=== PATIENT | female | born 2005 | race Caucasian/White ===

== ENCOUNTER 2023-04-06 19:05 | Emergency (ER) | payer MEDICAID, SELFPAY ==
[2023-04-06 19:08] VITALS: BP 108/74; PULSE 84; RESP 14; TEMP 36.9; O2SAT 99; BMI 22.9
--- NOTE | 2023-04-06 19:24 | ED.NAVMDI1 ---
HPI - Nausea/Vomiting/Diarrhea General Chief complaint: Nausea/Vomiting/Diarrhea Stated complaint: VOMITING Time Seen by Provider: 04/06/23 19:11 Source: patient Mode of arrival: walk-in History of Present Illness HPI Narrative: 18-year-old female to the emergency department with chief complaint of vomiting. Patient reports that this happens to her intermittently. She was seen at [facility] for the same thing today and was told to slow down on the marijuana. Patient reports that they usually give her a shot however they did not have the shot today and she does not feel better putting her Emergency Department visit. Patient reports that she does smoke marijuana every day. She denies any other drug use. She denies any alcohol use. Related Data Home Medications Medication Instructions Recorded Confirmed ibuprofen 800 mg tablet 800 mg PO TID PRN fever or pain 04/06/23 04/06/23 ondansetron 4 mg disintegrating 4 mg PO Q6H PRN nausea and vomiting 04/06/23 04/06/23 tablet Previous Rx's Medication Instructions Recorded promethazine 25 mg rectal 25 mg RI Q6H PRN nausea and 04/06/23 suppository vomiting #12 ea promethazine 25 mg tablet 25 mg PO Q6H PRN nausea and 04/06/23 vomiting #14 tabs Allergies Allergy/AdvReac Type Severity Reaction Status Date / Time No Known Drug Allergies Allergy Verified 04/06/23 19:12 Review of Systems ROS Status of ROS 10 or more systems reviewed and unremarkable except as noted in history and below Exam Narrative Exam Narrative: VITALS: I have reviewed the triage vital signs. GENERAL: Well developed, well appearing adult in no acute distress. NEURO: Alert and oriented. Moves all extremities. Face is symmetric and expressive. EYES: PERRL. No scleral icterus or conjunctival injection. No discharge. HENT: Normocephalic, atraumatic. Hearing is grossly intact. Nares grossly patent and without discharge. Mucous membranes moist. NECK: No JVD. Patient moves neck without restriction. CARDIO: Rhythm regular. Normal rate. No murmur, rub, or gallop. Pulses equal bilaterally in the upper and lower extremity. No lower extremity edema. PULM: Lungs clear to auscultation in all torres. No wheezes, rales, or rhonchi. No conversational dyspnea. No splinting, stridor, or accessory muscle use. GI/: Abdomen is soft and non-tender. Normoactive bowel sounds. EXTREMITIES: Symmetric muscle bulk. No joint swelling. No clubbing, cyanosis, or deformity. SKIN: Warm and dry. Normal turgor. No rash or lesions appreciated. PSYCH: Mood, affect, and interaction is appropriate to the setting. Constitutional Vital Signs, click to edit/add: Last Vital Signs Temp 98.5 F 04/06/23 19:08 Pulse 84 04/06/23 19:08 Resp 14 04/06/23 19:08 BP 108/74 04/06/23 19:08 Pulse Ox 99 04/06/23 19:08 O2 Del Method Room Air 04/06/23 19:08 Course Vital Signs Vital signs: Vital Signs Temperature 98.5 F 04/06/23 19:08 Pulse Rate 84 04/06/23 19:08 Respiratory Rate 14 04/06/23 19:08 Blood Pressure 108/74 04/06/23 19:08 Pulse Oximetry 99 04/06/23 19:08 Oxygen Delivery Method Room Air 04/06/23 19:08 Temperature 98.5 F 04/06/23 19:08 Pulse Rate 84 04/06/23 19:08 Respiratory Rate 14 04/06/23 19:08 Blood Pressure 108/74 04/06/23 19:08 Pulse Oximetry 99 04/06/23 19:08 Oxygen Delivery Method Room Air 04/06/23 19:08 MDM - Nausea/Vomiting/Diarrhea MDM Narrative Medical decision making narrative: 18-year-old female to the emergency department with chief complaint of recurrent vomiting in setting of marijuana use. The patient is afebrile. Examination is benign. He is seen previously for this today however she reports no workup including labs were done. We'll proceed with some screening labs at this time. Fluids, Phenergan ordered. Patient agrees with this plan. Laboratory reviewed. No major abnormalities. She does have small white count which is likely secondary to stress reaction. Patient reexamined.Abdomen remains benign. Her vitals remained stable. She is no longer vomiting after medications. She is able to tolerate oral intake. I recommended cessation of marijuana use for six months as diagnostic step to see if this resolves her episodic vomiting. She'll follow-up with her PCP. She is given Phenergan as this seems to work better for her. If she cannot take the oral tablet she is instructed to use a Phenergan suppository. Return precautions were discussed. All questions were answered. The patient was discharged home. Lab Data Labs: Lab Results 04/06/23 Range/Units 19:34 WBC 17.8 H (4.0-11.0) 10^3/uL RBC 5.42 H (4.20-5.40) 10^6/uL Hgb 14.2 (12.0-16.0) g/dL Hct 42.9 (36.0-48.0) % MCV 79.2 L (81.0-99.0) fL MCH 26.2 L (26.7-34.0) pg MCHC 33.1 (29.9-35.2) g/dL RDW 12.6 (11.0-15.0) % Plt Count 259 (150-450) 10^3/uL MPV 11.5 (9.5-13.5) fL Neut % (Auto) 89.9 H (43.0-75.0) % Lymph % (Auto) 6.0 L (20.5-60.0) % [place] % (Auto) 3.5 (1.7-12.0) % Eos % (Auto) 0.0 L (0.9-7.0) % Baso % (Auto) 0.2 (0.2-2.0) % Neut # (Auto) 16.0 H (1.4-6.5) 10^3/uL Lymph # (Auto) 1.1 L (1.2-3.8) 10^3/uL [place] # (Auto) 0.6 (0.3-0.8) 10^3/uL Eos # (Auto) 0.0 (0.0-0.7) 10^3/uL Baso # (Auto) 0.0 (0.0-0.1) 10^3/uL Abs Immat Gran (auto) 0.07 H (0.00-0.03) 10^3/uL Imm/Tot Granulo (auto) 0.4 (0.0-0.5) % Sodium 142 (136-145) mmol/L Potassium 3.5 (3.5-5.1) mmol/L Chloride 108 H (98-107) mmol/L Carbon Dioxide 22.6 (21.0-32.0) mmol/L Anion Gap 14.9 BUN 14.0 (7.0-18.0) mg/dL Creatinine 1.05 H (0.55-1.02) mg/dL Est GFR ( Amer) >60 (>=60) Est GFR (Non-Af Amer) >60 (>=60) BUN/Creatinine Ratio 13.3 Glucose 125 H (74-106) mg/dL Calcium 9.6 (8.5-10.1) mg/dL Total Bilirubin 0.4 (0.2-1.0) mg/dL AST 21 (15-37) U/L ALT 26 (14-59) U/L Alkaline Phosphatase 83 (46-116) U/L Total Protein 8.2 (6.4-8.2) g/dL Albumin 4.3 (3.4-5.0) g/dL Globulin 3.9 g/dL Albumin/Globulin Ratio 1.1 Lipase <10.0 L (16.0-77.0) U/L Discharge Plan Discharge Chief Complaint: Nausea/Vomiting/Diarrhea Clinical Impression: Vomiting Patient Disposition: Home, Self-Care Time of Disposition Decision: 21:06 Condition: Good Mode of Transportation: Private Vehicle Prescriptions / Home Meds: New promethazine 25 mg tablet 25 mg PO Q6H PRN (Reason: nausea and vomiting) Qty: 14 0RF promethazine 25 mg suppository 25 mg RI Q6H PRN (Reason: nausea and vomiting) Qty: 12 0RF No Action ibuprofen 800 mg tablet 800 mg PO TID PRN (Reason: fever or pain) ondansetron 4 mg tablet,disintegrating 4 mg PO Q6H PRN (Reason: nausea and vomiting) Print Language: Pakistani Instructions: Acute Nausea and Vomiting (ED) Additional Instructions: Follow up with her primary care doctor. Discontinue marijuana use for the next six months to see if this resolves her episodic vomiting. Stand Alone Forms: Portal Instructions Referrals: Physician,Non-Staff, MD [Primary Care Provider] - 1 week
[2023-04-06 19:41] LABS: Basophils Percent Auto 0.2 % (0.2-2.0); Hematocrit 42.9 % (36.0-48.0); Hemoglobin 14.2 g/dL (12.0-16.0); Immature Granulocytes Abs Auto 0.07 10^3/uL (0.00-0.03); Immature Granulocytes Pct Auto 0.4 % (0.0-0.5); Lymphocytes Absolute Auto 1.1 10^3/uL (1.2-3.8); Mean Corpuscular HGB Conc 33.1 g/dL (29.9-35.2); Mean Corpuscular Hemoglobin 26.2 pg (26.7-34.0); Mean Corpuscular Volume 79.2 fL (81.0-99.0); Mean Platelet Volume 11.5 fL (9.5-13.5); Monocytes Absolute Auto 0.6 10^3/uL (0.3-0.8); Monocytes Percent Auto 3.5 % (1.7-12.0); Neutrophils Percent Auto 89.9 % (43.0-75.0); Platelet Count 259 10^3/uL (150-450); Red Blood Count 5.42 10^6/uL (4.20-5.40); Red Cell Distribution Width 12.6 % (11.0-15.0); White Blood Count 17.8 10^3/uL (4.0-11.0)
[2023-04-06] MEDS: 0.9 % SODIUM CHLORIDE 1,000 ML 999 ML IV (19:44)
[2023-04-06] MEDS: PROMETHAZINE HCL 25 MG/ML VIAL IV (19:44)
[2023-04-06 19:59] LABS: Alanine Aminotransferase 26 U/L (14-59); Albumin Globulin Ratio 1.1; Albumin Level 4.3 g/dL (3.4-5.0); Alkaline Phosphatase 83 U/L (46-116); Anion Gap 14.9; Aspartate Amino Transferase 21 U/L (15-37); BUN Creatinine Ratio 13.3; Bilirubin Total 0.4 mg/dL (0.2-1.0); Calcium 9.6 mg/dL (8.5-10.1); Carbon Dioxide 22.6 mmol/L (21.0-32.0); Chloride 108 mmol/L (98-107); Estimated GFR (African America >60 (>=60); Estimated GFR (Non-African Ame >60 (>=60); Globulin 3.9 g/dL; Glucose 125 mg/dL (74-106); Lipase <10.0 U/L (16.0-77.0); Potassium 3.5 mmol/L (3.5-5.1); Sodium 142 mmol/L (136-145); Total Protein 8.2 g/dL (6.4-8.2)
== END 2023-04-06 21:22 | disposition home or self-care (01) ==
PROVIDERS: Emergency Provider Student in an Organized Health Care Education/Training Program
DX: R11.10 Vomiting, unspecified (principal); F12.90 Cannabis use, unspecified, uncomplicated
CPT/HCPCS: 36415; 80053; 83690; 85025; 96374; 99284; J2250

== ENCOUNTER 2023-09-11 19:39 | Emergency (ER) | payer OTHER, SELFPAY ==
[2023-09-11 19:50] VITALS: BP 117/76; PULSE 75; TEMP 36.7; O2SAT 100; BMI 21.7
--- NOTE | 2023-09-11 19:59 | CT_ITS ---
The [address] [address] Patient Name: FRANCISCO MADRID MRN: [id number] date: 2005 Sex: F Assigned Patient Location: Current Patient Location: Accession/Order Number: [id number] Exam Date: 09/11/2023 22:37 Report Date: 09/12/2023 01:10 At the request of: CHRISTIAN ALEXANDER Procedure: CT abdomen pelvis w con EXAM: CT abdomen pelvis w con HISTORY: Pelvic pain COMPARISON: None. TECHNIQUE: Axial CT images through the abdomen and pelvis were obtained after the intravenous administration of contrast with coronal and sagittal reformats. Dose reduction techniques were achieved by using automated exposure control and/or adjustment of mA and/or kV according to patient size and/or use of iterative reconstruction technique. FINDINGS: The visualized portions of the lung bases are clear. Abdomen: The liver and spleen enhance homogeneously without focal lesion. There is no intra or extrahepatic biliary duct dilatation. The gallbladder is unremarkable. The pancreas, adrenal glands, kidneys, and bowel loops are unremarkable. There is no mesenteric or retroperitoneal lymphadenopathy. The appendix is dilated measuring up to 0.8 cm without surrounding inflammatory changes. Pelvis: Liquid stool is seen within the rectum. The bladder is unremarkable. There is no iliac or inguinal lymphadenopathy. The uterus is present. The right ovary appears within normal limits by CT. There is a left ovarian hemorrhagic cyst measuring up to 1.3 x 1.1 cm (series 3, image 99). There is a small amount of free fluid in the pelvis. Bone windows show no aggressive osseous lesions. CT/CT abdomen pelvis w con IMPRESSION: 1. Left ovarian hemorrhagic cyst with a small amount of free fluid in the pelvis. 2. Liquid stool in the rectum, in keeping with diarrhea. 3. The appendix is prominent measuring up to 0.8 cm; however, no surrounding inflammatory changes are seen. Acute appendicitis is felt unlikely. Electronically authenticated by: Radha BRAY Date: 09/12/2023 01:10
--- OUTSIDE RECORDS SUMMARY | 2023-09-11 20:00 | XMS_ITS | CCD ---
Author Organization [facility] Care Team Providers Care Dental Technician Apprentice Name Role Phone MARKER, DR ALEGRIA Attending Unavailable MARKER, DR ALEGRIA Admitting Unavailable HO ALEXANDER Consulting Unavailable [facility] [place] Primary Care Unavailable NO FAMILY, PHYSICIAN Primary Care Provider Unava ilable JOHANNA Cobian Emergency Provider Fredy Cobian Attending Unavailable Fredy Cobian Admitting Unavailable NO FAMILY, PHYSICIAN Primary Care Unavailable LUCA ODOM Attending Unavailab whitney No Pcp, No Pcp Primary Care Provider Unavailmiguel e NO PCP, NO PCP Primary Care Unavailable JOSSY ESTEVEZ Attending Unavailable NO PCP, NO PCP Primary Care Unavailable DACIA ROSE Attending Unavailable NO PCP, NO PCP Primary Care Unavailable Medications Current Medications Medication Drug Class(es) Dates Sig (Normalized) Sig (Original) acetaminophen 325 mg / oxyCODONE hydrochloride 5 mg oral tablet (1 source) Opioid Agonist Start: 04-11-2023 End: 04-13-2023 oxyCODONE-acetamin ophen (PERCOCET) 5-325 mg per tablet Indications: Postoperative abscess Take 1 tablet by mouth every 8 (eight) hours as needed for pain for up to 2 days. Max Daily Amount: 3 tablets 6 tablet 0 04/11/2023 04/13/2023 Active benzocaine 200 mg/ml / menthol 5 mg/ml topical spray (3 sources) Standardized Chemical Allergen Start: 04-11-2023 benzocaine-menthoL (DERMOPLAST) 20-0.5 % aerosol Apply 1 Application topically 4 (four) times a day as needed for pain. 56 g 0 04/11/2023 Active cephalexin 500 mg oral capsule (3 sources) Cephalosporin Antibacterial Start: 04-11-2023 End: 04-18-2023 take 1 capsule by mouth three times daily CEPHalexin (KEFLEX) 500 mg capsule Take 1 capsule (500 mg total) by mouth 3 (three) times a day for 7 days. 21 capsule 0 04/11/2023 04/18/2023 Active doxycycline hyclate 100 mg oral tablet (1 source) Tetracycline-class Drug Start: 04-11-2023 End: 04-18-2023 take 1 tablet by mouth in the morning, then take 1 tablet by mouth at bedtime doxycycline (VIBRA-TABS) 100 mg tablet Take 1 tablet (100 mg total) by mouth in the morning and 1 tablet (100 mg total) before bedtime. 0 04/11/2023 04/18/2023 Active ibuprofen 800 mg oral tablet (3 sources) Nonsteroidal Anti-inflammatory Drug Start: 04-06-2023 take 1 tablet by mouth three times daily ibuprofen (MOTRIN) 800 mg tablet Take 1 tablet (800 mg total) by mouth 3 (three) times a day. 21 tablet 0 04/06/2023 Active ondansetron 4 mg disintegrating oral tablet (1 source) Serotonin-3 Receptor Antagonist Start: 08-10-2022 take 4 mg by mouth every eight hours Ondansetron Active 4 MG PO Q8H 7 August 10, 2022 11:58am Problems Active Problems Problem Classification Problem Date Documented Da te Episodic/Chronic Complications of surgical procedures or medical care (1 source) Infection following a procedure, other surgical site, initial encounter; Translations: [Infection following a procedure, other surgical site, initial encounter] Onset: 04-11-2023 Episodic Inflammatory diseases of female pelvic organs (3 sources) Abscess of vulva; Translations: [Abscess of labia] Onset: 04-11-2023 04-17-2023 Episodic Nausea and vomiting (3 sources) Vomiting, unspecified; Translations: [Vomiting] Onset: 04-06-2023 Episodic Other gastrointestinal disorders (1 source) Diarrhea Onset: 04-06-2023 Episodic Other skin disorders (3 sources) Localized swelling, mass and lump, trunk; Translations: [LOCALIZD SWELLING MASS AND LUMP TRUNK] Onset: 07-29-2020 Episodic Other skin disorders (1 source) Follicular disorder, unspecified; Translations: [FOLLICULAR DISORDER UNSPECIFIED] Onset: 07-31-2020 Episodic Other upper respiratory infections (1 source) Viral upper respiratory tract infection; Translations: [Acute upper respiratory infection, unspecified] 08-10-2022 Episodic Skin and subcutaneous tissue infections (2 sources) Cellulitis of groin; Translations: [Abscess] Onset: 07-31-2020 Episodic Unclassified (1 source) Cyclical vomiting syndrome unrelated to migraine; Translations: [Cyclical vomiting syndrome unrelated to migraine] Onset: 04-06-2023 Past or Other Problems Problem Classification Problem Date Documented Da te Episodic/Chronic Viral infection (1 source) Viral infection, unspecified; Translations: [Viral infection, unspecified] Onset: 08-10-2022 Episodic Results Test Name Value Interpretation Reference Range Facil ity BASIC METABOLIC PANLon 04-11 Anion gap [Moles/Vol] 6 mmol/L Normal 5-15 [facility] Comment on above: Performed By: #### B KATELYN CBCA #### [facility] ([id number]) [address] [place] [address] 79874 Calcium [Mass/Vol] 8.6 mg/dL Normal 8.5-10.5 [facility] Comment on above: Performed By: #### B KATELYN CBCA #### [facility] ([id number]) [address] [place] [address] 67602 Chloride [Moles/Vol] 109 mmol/L Normal 98-109 [facility] Comment on above: Performed By: #### Edwige ZEPEDA CBCA #### [facility] ([id number]) [address] [place] [address] 21555 CO2 [Moles/Vol] 24 mmol/L Normal 22-32 [facility] Comment on above: Performed By: #### Edwige ZEPEDA CBCA #### [facility] ([id number]) [address] [place] [address] 63172 Creatinine [Mass/Vol] 0.72 mg/dL Normal 0.40-1.00 [facility] Comment on above: Result Comment: METH OD TRACEABLE TO IDMS STANDARD Performed By: #### B KATELYN CBCA #### [facility] ([id number]) [address] [place] [address] 52064 eGFR (CKD-EPI) NON-RACE DEPENDENT >90 Normal >59 [facility] Comment on above: Result Comment: Reported eGFR is based on the CKD-EPI 2020 equation that does not use a race coefficient. Performed By: #### B KATELYN CBCA #### [facility] ([id number]) [address] [place] [address] 73532 Glucose [Mass/Vol] 97 mg/dL Normal 65-99 [facility] Comment on above: Performed By: #### B KATELYN CBCA #### [facility] ([id number]) [address] [place] [address] 03812 Potassium [Moles/Vol] 3.2 mmol/L Low 3.5-5.0 [facility] Comment on above: Performed By: #### B KATELYN CBCA #### [facility] ([id number]) [address] [place] [address] 49090 Sodium [Moles/Vol] 139 mmol/L Normal 134-146 [facility] Comment on above: Performed By: #### B KATELYN CBCA #### [facility] ([id number]) [address] [place] [address] 68599 Urea nitrogen [Mass/Vol] 6 mg/dL Normal 5-23 [facility] Comment on above: Performed By: #### B KATELYN CBCA #### [facility] ([id number]) [address] [place] [address] 88090 CBC AND AUTO DIFFon -30-20 24 ABSOLUTE BASOPHIL 0.1 X10E9/L Normal 0.0-0.2 [facility] Comment on above: Performed By: #### B KATELYN, CBCA #### [facility] ([id number]) [address] [place] [address] 60501 ABSOLUTE NEUTROPHIL 10.3 X10E9/L High 1.5-6.6 [facility] Comment on above: Performed By: #### B MP, CBCA #### [facility] ([id number]) [address] [place] [address] 34718 Basophils/100 WBC (Bld) 0.6 % Normal [facility] Comment on above: Performed By: #### B MP, CBCA #### [facility] ([id number]) [address] [place] [address] 05837 Eosinophils (Bld) [#/Vol] 0.2 10*3/uL Normal 0.0-0.4 [facility] Comment on above: Performed By: #### B MP, CBCA #### [facility] ([id number]) [address] [place] [address] 47021 Eosinophils/100 WBC (Bld) 1.2 % Normal [facility] Comment on above: Performed By: #### B MP, CBCA #### [facility] ([id number]) [address] [place] [address] 92595 Erythrocyte distribution width (RBC) [Ratio] 13.1 % Normal 11.5-15.0 [facility] Comment on above: Performed By: #### B MP, CBCA #### [facility] ([id number]) [address] [place] [address] 96742 Hematocrit (Bld) [Volume fraction] 38.7 % Normal 35-47 [facility] Comment on above: Performed By: #### B MP, CBCA #### [facility] ([id number]) [address] [place] [address] 45880 Hemoglobin (Bld) [Mass/Vol] 12.7 g/dL Normal 11.7-15.5 [facility] Comment on above: Performed By: #### B MP, CBCA #### [facility] ([id number]) [address] [place] [address] 79165 Lymphocytes (Bld) [#/Vol] 3.0 10*3/uL Normal 1.0-3.5 [facility] Comment on above: Performed By: #### B KATELYN, CBCA #### [facility] ([id number]) [address] [place] [address] 61250 Lymphocytes/100 WBC (Bld) 20.4 % Normal [facility] Comment on above: Performed By: #### B KATELYN, CBCA #### [facility] ([id number]) [address] [place] [address] 51314 MCH (RBC) [Entitic mass] 26.1 pg Low 27-34 [facility] Comment on above: Performed By: #### B KATELYN, CBCA #### [facility] ([id number]) [address] [place] [address] 99885 MCHC (RBC) [Mass/Vol] 32.9 g/dL Normal 32-36 [facility] Comment on above: Performed By: #### B KATELYN, CBCA #### [facility] ([id number]) [address] [place] [address] 35579 MCV (RBC) [Entitic vol] 79 fL Low 80-100 [facility] Comment on above: Performed By: #### B KATELYN, CBCA #### [facility] ([id number]) [address] [place] [address] 71155 Monocytes (Bld) [#/Vol] 1.1 10*3/uL High 0-0.9 [facility] Comment on above: Performed By: #### B KATELYN, CBCA #### [facility] ([id number]) [address] [place] [address] 80673 Monocytes/100 WBC (Bld) 7.4 % Normal [facility] Comment on above: Performed By: #### B KATELYN, CBCA #### [facility] ([id number]) [address] [place] [address] 30525 Neutrophils/100 WBC (Bld) 70.4 % Normal [facility] Comment on above: Performed By: #### B MP, CBCA #### [facility] ([id number]) [address] [place] [address] 06829 Platelet mean volume (Bld) [Entitic vol] 10.0 fL Normal 7-12 [facility] Comment on above: Performed By: #### B MP, CBCA #### [facility] ([id number]) [address] [place] [address] 73747 Platelets (Bld) [#/Vol] 199 10*3/uL Normal 150-450 [facility] Comment on above: Performed By: #### B MP, CBCA #### [facility] ([id number]) [address] [place] [address] 04711 RBC COUNT 4.88 X10E12/L Normal 3.80-5.20 [facility] Comment on above: Performed By: #### B MP, CBCA #### [facility] ([id number]) [address] [place] [address] 90928 WBC (Bld) [#/Vol] 14.6 10*3/uL High 4.0-11.0 [facility] Comment on above: Performed By: #### B MP, CBCA #### [facility] ([id number]) [address] [place] [address] 63251 HCG ( test) Ql (U)o n 04-11-2023 Beta HCG ( test) Ql (U) Negative Normal NEG [facility] Comment on above: Performed By: #### 2 106-3 #### [facility] ([id number]) [address] [place] [address] 68266 SUPERFICIAL WOUND CULTUREon 04-11-2023 Bacteria identified Aer cx Nom (Wound) GRAM STAIN >25 WHITE BLOOD CELLS/LPF 1 to 9 SQUAMOUS EPITHELIAL CELLS/LPF MANY GRAM POSITIVE COCCI IN CLUSTERS MANY GRAM POSITIVE COCCI IN PAIRS MANY GRAM NEGATIVE COCCOBACILLI SMEAR REVIEWED REPORT UPDATED REVIEWED BY TECH III CULTURE RESULTS RARE NORMAL URO GENITAL KARLA Normal [facility] Comment on above: Performed By: #### 6 32-0 #### [facility] ([id number]) [address] [place] [address], [address] [place] [address] URN MACROSCOPIC NURon 2023 BILIRUBIN DEVORA Negative Normal NEG [facility] Comment on above: Performed By: #### N UM #### [facility] ([id number]) [address] [place] [address] 70300 BLOOD/HGB DEVORA Large Abnormal NEG [facility] Comment on above: Performed By: #### N UM #### [facility] ([id number]) [address] [place] [address] 49786 GLUCOSE DEVORA Negative Normal NEG [facility] Comment on above: Performed By: #### N UM #### [facility] ([id number]) [address] [place] [address] 07970 KETONES DEVORA Negative Normal NEG [facility] Comment on above: Performed By: #### N UM #### [facility] ([id number]) [address] [place] [address] 83291 LEUKOCYTE ESTERASE DEVORA Small Abnormal NEG [facility] Comment on above: Performed By: #### N UM #### [facility] ([id number]) [address] [place] [address] 72699 NITRITE DEVORA Negative Normal [facility] Comment on above: Performed By: #### N UM #### [facility] ([id number]) [address] [place] [address] 84224 PH DEVORA 6.0 Normal 5.0-8.5 [facility] Comment on above: Performed By: #### N UM #### [facility] ([id number]) [address] [place] [address] 79402 PROTEIN DEVORA 30 mg/dL Abnormal NEG [facility] Comment on above: Performed By: #### N UM #### [facility] ([id number]) [address] [place] [address] 91322 SPECIFIC GRAVITY DEVORA >=1.030 Normal 1.003-1.035 [facility] Comment on above: Performed By: #### N UM #### [facility] ([id number]) [address] [place] [address] 48605 UROBILINOGEN DEVORA 0.2 eu/dL Normal <1.1 [facility] Comment on above: Performed By: #### N UM #### [facility] ([id number]) [address] [place] [address] 05494 HCG ( test) Ql (U)o n 04-06-2023 Beta HCG ( test) Ql (U) Negative Normal NEG [facility] Comment on above: Performed By: #### 2 106-3 #### [facility] ([id number]) [address] [place] [address] 71440 URINE CULTUREon 04-06-2023 Bacteria identified Cx Nom (U) CULTURE RESULTS NO GROWTH AT <1000 CFU/mL Normal [facility] Comment on above: Performed By: #### 6 30-4 #### [facility] ([id number]) [address], [address] [place] [address] URN MACROSCOPIC NURon 2023 BILIRUBIN DEVORA Small Abnormal NEG [facility] Comment on above: Performed By: #### N UM #### [facility] ([id number]) [address] [place] [address] 83586 BLOOD/HGB DEVORA Large Abnormal NEG [facility] Comment on above: Performed By: #### N UM #### [facility] ([id number]) [address] [place] [address] 02140 GLUCOSE DEVORA Negative Normal NEG [facility] Comment on above: Performed By: #### N UM #### [facility] ([id number]) [address] [place] [address] [place] [address] KETONES DEVORA >=160 Abnormal NEG [facility] Comment on above: Performed By: #### N UM #### [facility] ([id number]) [address] [place] [address] 03148 LEUKOCYTE ESTERASE DEVORA Trace Abnormal NEG [facility] Comment on above: Performed By: #### N UM #### [facility] ([id number]) [address] [place] [address] 09801 NITRITE DEVORA Negative Normal NEG [facility] Comment on above: Performed By: #### N UM #### [facility] ([id number]) [address] [place] [address] 67672 PH DEVORA 8.5 Normal 5.0-8.5 [facility] Comment on above: Performed By: #### N UM #### [facility] ([id number]) [address] [place] [address] 63460 PROTEIN DEVORA 100 mg/dL Abnormal NEG [facility] Comment on above: Performed By: #### N UM #### [facility] ([id number]) [address] [place] [address] 80517 SPECIFIC GRAVITY DEVORA 1.020 Normal 1.003-1.035 [facility] Comment on above: Performed By: #### N UM #### [facility] ([id number]) [address] [place] [address] [place] [address] UROBILINOGEN DEVORA 0.2 eu/dL Normal <1.1 [facility] Comment on above: Performed By: #### N UM #### [facility] ([id number]) [address] [facility] [facility] [place] [address] COVID-19 Antigenon 3 COVID-19 Antigen Healthcare Worker?: N Reference Range: Negative Negative results, from patients with symptom onset beyond five days, should be treated as presumptive and confirmation with a molecular assay, if necessary, for patient management, may be performed. Negative results do not rule out COVID-19 and should not be used as the sole basis for treatment or patient management decisions, including infection control decisions. Negative results should be considered in the context of a patient's recent exposures, history and the presence of clinical signs and symptoms consistent with COVID-19. The Billy SARS Antigen RODERICK does not differentiate between SARS-CoV and SARS-CoV-2. This test was developed and its performance characteristic determined by [employer] and validated at [facility]. This test has not been FDA cleared or approved. This test has been authorized by FDA under an Emergency Use Authorization (EUA). This test has been validated in accordance with the FDA's Guidance Document (Policy for Diagnostics Testing in Laboratories Certified to Perform High Complexity Testing under CLIA prior to Emergency Use Authorization for Coronavirus Disease-2019 during the Public Health Emergency) issued on June 13, 2019. This test is only authorized for the duration of time the declaration that circumstances exist justifying the authorization of the emergency use of in vitro diagnostic tests for detection of SARS-CoV-2 virus and/or diagnosis of COVID-19 infection under section 564(b)(1) of the Act, 21 U.S.C. 360bbb-3(b)(1), unless the authorization is terminated or revoked sooner. SARS-CoV+SARS-CoV-2 (COVID-19) Ag [Presence] in Respiratory specimen by Rapid immunoassay Negative for SARS Antigen by RODERICK PERFORMED BY: [facility] [address] [place] [address] PATHOLOGIST HELICOPTER PILOT INSTRUCTOR SHAYLA LEAVITT M.D. Normal [facility] Comment on above: Performed By: #### C OVID-19 BILLY, SOFIANEG #### [facility] [address] [place] [address] [facility] Billy Ag Negativeon 08-11-19 Billy Ag Negative Negative Normal Negative [facility] Comment on above: Result Comment: This is a duplicate Billy SARS Antigen (RODERICK) result to be used for statistical tracking purpose only. PERFORMED BY: [facility] [address] [place] [address] PATHOLOGIST HELICOPTER PILOT INSTRUCTOR SHAYLA LEAVITT M.D. Performed By: #### C OVID-19 BILLY, SOFIANEG #### [facility] [address] [place] [id number] [facility] Vital Signs Date Time Vital Sign Value Performing Clinician Faci lity 04-17-2023 15:57-0500 Body mass index (BMI) [Ratio] 23.69 kg/m2 Dacia Rose MD Work Phone: [facility] 04-17-2023 15:57-0500 Body weight 56.88 kg Dacia Rose MD Work Phone: [facility] 04-17-2023 15:57-0500 Diastolic blood pressure 66 mm[Hg] Dacia Rose MD Work Phone: [facility] 04-17-2023 15:57-0500 Systolic blood pressure 104 mm[Hg] Dacia Rose MD Work Phone: [facility] 08-10-2022 11:26-0400 Body height 154.94 cm PHYSICIAN NO [facility] 08-10-2022 11:26-0400 Body temperature 98.6 [degF] PHYSICIAN NO [facility] 08-10-2022 11:26-0400 Body weight 53.35 kg PHYSICIAN NO [facility] 08-10-2022 11:26-0400 Diastolic blood pressure 79 mm[Hg] PHYSICIAN NO [facility] 08-10-2022 11:26-0400 Heart rate 85 /min PHYSICIAN NO [facility] 08-10-2022 11:26-0400 Respiratory rate 16 /min PHYSICIAN NO [facility] 08-10-2022 11:040 SaO2% (BldA) [Mass fraction] 100 % PHYSICIAN NO [facility] 08-10-2022 11:040 Systolic blood pressure 122 mm[Hg] PHYSICIAN NO [facility] Encounters Encounter Date Encounter Type Care Provider Facility Start: 04-17-2023 End: 04-17-2023 ambulatory DACIA ROSE [facility] Start: 04-17-2023 End: 04-17-2023 Office outpatient visit 15 minutes Dacia Rose MD Work Phone: [facility] Comment on above: Labial abscess (Prim malu Dx) Start: 04-14-2023 Telephone encounter Mignon Mar RN [facility] Start: 04-12-2023 Telephone encounter Amy fitzpatrick DO Work Phone: [facility] [place] Start: 04-11-2023 End: 04-11-2023 Emergency department patient visit NO PCP NO PCP [facility] Start: 04-11-2023 End: 04-11-2023 ambulatory LUCA ODOM Not Available Start: 04-06-2023 End: 04-06-2023 Emergency department patient visit NO PCP NO PCP [facility] Start: 08-10-2022 End: 08-10-2022 Emergency department patient visit Fredy Aranza Facility:[facility] Start: 08-10-2022 End: 08-10-2022 Emergency department patient visit PHYSICIAN NO [facility] Work Phone: Start: 07-29-2020 End: 07-29-[address] RAJI MORENO Facility:[facility]1 Procedures Date Procedure Procedure Detail Performing Clinician Start: 04-17-2023 Follow-up visit Follow-up DACIA ROSE Plan of Treatment Date Care Activity Detail Author Start: 12-21-2025 DTaP,Tdap and Td Vaccines (6 - Td or Tdap) DTaP,Tdap and Td Vaccines (6 - Td or Tdap) [facility] Start: 02-05-2025 Adult BMI Screening Adult BMI Screen ing [facility] Start: 04-17-2024 Tobacco Screening Tobacco Screening [facility] Start: 04-11-2024 Tobacco Screening Tobacco Screening [facility] Start: 04-06-2024 Adult BMI Screening Adult BMI Screen ing [facility] Start: 04-18-2023 End: 04-18-2023 Patient encounter procedure 04/18/2023 2:15 PM EST Office Visit [facility] [place] [id number] Dacia Rose MD [facility] [address] [address] [facility] Start: 04-17-2023 End: 04-17-2023 Patient encounter procedure 04/17/2023 3:45 PM EST Office Visit [facility] [place] [phone] Dacia Rose MD [facility] [address] [address] [facility] Start: 11-11-2022 Influenza vaccination Influenza Vacc ine [facility] Start: 08-10-2022 SARS Antigen (LFIA) SARS Antigen (LF IA) [facility] Start: 08-10-2022 [facility] Start: 2015 Depression Screening Depression Scre ening [facility] Start: 2003 Screening for Chlamy chelsie trachomatis Chlamydia Screening [facility] Start: 2003 Tobacco Counseling Tobacco Counselin g [facility] Patient Education Viral Syndrome (DC) [facility] Work Phone: Patient referral [facility] Work Phone: Immunizations Immunization Date Immunization Notes Care Provider Lexi ruiz 07-05-2005 influenza virus vaccine, unspecified formulation Amy Govea DO Work Phone: [facility] Payers Date Payer Category Payer Private Health Insurance [id number] 2023 [place] [id number] 2023-Present [phone] [address] [place] [address] [id number] 2023 Medicaid [id number] 2022 Self-pay 2019 Private Health Insurance [employer]ONCAMELIA [place]-OPEN ACCESS PLUS (OAP,OA PLUS) [id number] 2019-Present [phone] [address] [place] [address] [id number] 2003 Unknown [id number] 2003 Unknown [id number] 2003 Unknown [id number] 2003 Unknown [id number] 1982 Unknown [id number] 93 1959 Private Health Insurance [id number] Unknown [id number] 31 Social History Date Type Detail Facility Start: 08-10-2022 Tobacco smoking stat [facility] Smoker (finding) [facility] Start: 2005 Sex Assigned At Female [facility] Start: 01-01-2023 Tobacco smoking stat [facility] Smokes tobacco daily [facility] History of tobacco use Cigarette Smoker [facility] History of tobacco use Cigar Smoker [facility] Start: 01-01-2023 Tobacco use and exposure Smokeless tobacco non-user [facility] Start: 04-11-2023 End: 04-17-2023 Alcohol intake Ex-drinker (finding) [facility] Start: 04-23-2020 End: 04-11-2023 History of Social function [facility] Start: 04-23-2020 End: 04-11-2023 Tobacco use panel [facility] Childcare Unknown [facility] Start: 2003 Sex Assigned At Not on file P [facility] History of Present illness Narrative 04-17-2023 Dacia Rose MD - 04/17/2023 3:45 PM EST Note Date & Type Note Facility 04-17-2023 History of Presen t illness Narrative Roger Madrid is a 18 y.o.female. Patient's last menstrual period was 04/05/2023 (exact date).. She presents today for follow up from I&D of L labial abscess in ED on 04/11/23 HEALING WELL NO FCNVD WORD CATH FELL OUT ON MONDAY STILL ON ABX Current contraception:no method OB History No obstetric history on file. MEDICAL HX History reviewed. No pertinent past medical history. SURGICAL HX History reviewed. No pertinent surgical history. FAMILY HX History reviewed. No pertinent family history. MEDS Current Outpatient Medications Medication Sig Dispense Refill CEPHalexin (KEFLEX) 500 mg capsule Take 1 capsule (500 mg total) by mouth 3 (three) times a day for 7 days. 21 capsule 0 doxycycline (VIBRA-TABS) 100 mg tablet Take 1 tablet (100 mg total) by mouth in the morning and 1 tablet (100 mg total) before bedtime. ibuprofen (MOTRIN) 800 mg tablet Take 1 tablet (800 mg total) by mouth 3 (three) times a day. 21 tablet 0 benzocaine-menthoL (DERMOPLAST) 20-0.5 % aerosol Apply 1 Application topically 4 (four) times a day as needed for pain. (Patient not taking: Reported on 04/17/2023) 56 g 0 No current facility-administered medications for this visit. ALLERGIES No Known Allergies Review of Systems Review of Systems Objective Wt 56.9 kg (125 lb 6.4 oz) LMP 04/05/2023 (Exact Date) BMI 23.69 kg/m Physical Exam BP 104/66 Wt 56.9 kg (125 lb 6.4 oz) LMP 04/05/2023 (Exact Date) BMI 23.69 kg/m Physical Exam GEN AAOX3, NAD HEENT UNREMARKABLE HEART RRR LUNGS CTAB ABD BENIGN, OBESE, NTND PELVIS: EG APPROP FOR AGE, LEFT LABIAL ABSCESS HEALING, NO ACUTE INFX VAGINA APPROP FOR AGE, NO LESIONS BIMANUAL NO MASSES OR TENDERNESS RECTAL DEFERRED EXTREM NO CCE, NO CALF TENDERNESS Assessment/Plan: LEFT LABIAL ABSCESS SP I&D 1 WEEK AGO CULTURE FINAL ONLY GRAM NEG COOCI --NO OTHER ID? FINISH ABX MD Danya LOREDO RN documented in this encounter [facility] Note 04-14-2023 Telephone Encounter - Mignon Mar RN - 04/14/2023 10:38 AM EST Note Date & Type Note Facility 04-14-2023 Miscellaneous Notes Formattin g of this note might be different from the original. Pt called stating that the phillips catheter fell out. Informed the patient that this is normal. She is to keep the area dry, when showering she can let the water fall but do not purposely scrub the area. She is to go to the ED if she develops a fever of 100.4 F, drainage that has a foul odor, increased pain, etc. She verbalized she understood. I did move up the pts appt for next Monday instead of Monday with Dr. Rose. Informed her of the after hours service, if she has questions over the weekend she can call the office and speak to the correction officer head provider. She verbalized she understood. PETER Azul [facility] Tele[facility] encounter Note 04-14-2023 Telephone Encounter - Mignon Mar RN - 04/14/2023 10:38 AM EST Note Date & Type Note Facility 04-14-2023 Telephone encount er Note Pt called stating that the phillips catheter fell out. Informed the patient that this is normal. She is to keep the area dry, when showering she can let the water fall but do not purposely scrub the area. She is to go to the ED if she develops a fever of 100.4 F, drainage that has a foul odor, increased pain, etc. She verbalized she understood. I did move up the pts appt for next Monday instead of Monday with Dr. Rose. Informed her of the after hours service, if she has questions over the weekend she can call the office and speak to the correction officer head provider. She verbalized she understood. PETER Azul [facility] Note 04-12-2023 Telephone Encounter - Annmarie Tom - 04/12/2023 9:53 AM ESTTelephone Encounter - Annmarie Tom - 04/12/2023 9:53 AM EST Note Date & Type Note Facility 04-12-2023 Miscellaneous Notes Formattin g of this note might be different from the original. Pt had labial abscess lanced in ED by Dr Rose on 04/11/23. Pt was advised she could take warm baths. Pt is inquiring how soon she can take a bath. Pt states wound is open. Please advise. Thank you Advised Pt per Dr Govea: I was not present when this patient was seen her care for. If Dr. Rose told her that she could take will warm baths I would assume she means that she is able to do so now. documented in this encounter [facility] Telephone encounter Note 04-12-2023 Telephone Encounter - Annmarie Tom - 04/12/2023 9:53 AM EST Note Date & Type Note Facility 04-12-2023 Telephone encount er Note Pt had labial abscess lanced in ED by Dr Rose on 04/11/23. Pt was advised she could take warm baths. Pt is inquiring how soon she can take a bath. Pt states wound is open. Please advise. Thank you [facility] Telephone encounter Note 04-12-2023 Telephone Encounter - Annmarie Tom - 04/12/2023 9:53 AM EST Note Date & Type Note Facility 04-12-2023 Telephone encount er Note Advised Pt per Dr Govea: I was not present when this patient was seen her care for. If Dr. Rose told her that she could take will warm baths I would assume she means that she is able to do so now. [facility] Evaluation note Note Date & Type Note Facility Evaluation note No assessment information [facility] Work Phone: Evaluation note Note Date & Type Note Facility Evaluation note Diagnosis Labial abscess- Primary documented in this encounter [facility] Instructions Note Date & Type Note Facility Instructions Not on filedocumented in this en counter [facility] Instructions Note Date & Type Note Facility Instructions Not on filedocumented in this en counter [facility] Summary Purpose Family History No Family History Records FoundNo Family History Records FoundNo Family History Records FoundNo Family History Records FoundNo Family History Records Found Advance Directives No Advanced Directives Records Found Advance Directive Response Recorded Date/ Time Advance Directives No August 10 11:52am Chief Complaint and Reason for Visit Chief Complaint cough Additional Source Comments INFORMATION SOURCE (unrecogn ized section and content) DATE CREATED AUTHOR 08/06/2020 [facility] DATE CREATED AUTHOR AUTHOR'S ORGANIZ ATION 12/13/2022 [facility] DATE CREATED AUTHOR AUTHOR'S ORGANIZ ATION 04/12/2023 [facility] DATE CREATED AUTHOR AUTHOR'S ORGANIZ ATION 04/16/2023 [facility] DATE CREATED AUTHOR AUTHOR'S ORGANIZ ATION 04/22/2023 [facility] Care Teams (unrecognized sec tion and content) Team Status: Active Member Role Status Dates PHYSICIAN NO FAMILY Primary Care Provider Active Team Status: Inactive Member Role Status Dates PHYSICIAN NO FAMILY Primary Care Provider Active Fredy Cobian APRN Emergency Provider Active Dental Technician Apprentice Relationship Specialty Start Date End Date No Pcp, [place] [address] PCP - General Family Medicine 04/06/23 Dental Technician Apprentice Relationship Specialty Start Date End Date No Pcp, [place] [address] PCP - General Family Medicine 04/06/23 Dental Technician Apprentice Relationship Specialty Start Date End Date No Pcp, [place] [address] PCP - General Family Medicine 04/06/23 Goals (unrecognized section and content) Goals may be documented in a n alternate sectionNot on filedocumented as of this encounterNot on filedocumented as of this encounterNot on filedocumented as of this encounter Reason for Visit (unrecogniz ed section and content) Reason Comments Follow-up From 04/11/23 visit, L labial abscess. FOR RECORDS PERTAINING TO PATIENTS WHO ARE OR HAVE BEEN ENROLLED IN A CHEMICAL DEPENDENCY/SUBSTANCEABUSE PROGRAM, SOME INFORMATION MAY BE OMITTED. This clinical summary was aggregated from multiple sources. Caution should be exercised in using it in the provision of clinical care. This summary normalizes information from multiple sources, and as a consequence, information in this document may materially change the coding, format and clinical context of patient data. In addition, data may be omitted in some cases. CLINICAL DECISIONS SHOULD BE BASED ON THE PRIMARY CLINICAL RECORDS. [employer] [facility]. provides no warranty or guarantee of the accuracy or completeness of information in this document.
--- NOTE | 2023-09-11 20:01 | ED.ABDPAIN1 ---
Documented by User: HO Cool 09/11/23 22:17 HPI - Abdominal Pain General Chief Complaint: Abdominal Pain Stated Complaint: vomitting cont Time Seen by Provider: 09/11/23 19:43 Source: patient Mode of arrival: walk-in Limitations: no limitations History of Present Illness HPI narrative: Patient is a 18-year-old female who presents to the emergency department for variety of complaints. She states that every time she is due to have a menstrual period, she has significant pelvic pain and vomiting. This has been ongoing for some time. She has not been seen by a mechanical laboratory technician for the symptoms and she presents to this emergency department tonight for answers. She has had no fevers or upper respiratory symptoms. She states she started her menstrual cycle today. Her family is concerned that she may have an ovarian cyst. She has had no urinary symptoms. She further complains of a boil in the vaginal area, she states she gets frequent boils after shaving in her groin. Her family member at bedside states that the boil is almost gone but the patient thought she should mention it. She states she used to have a mechanical laboratory technician but her insurance changed so she does not have anyone to see. Related Data Home Medications ?Medication ?Instructions ?Recorded ?Confirmed ibuprofen 800 mg tablet 800 mg PO TID PRN fever or pain 04/06/23 04/06/23 ondansetron 4 mg disintegrating 4 mg PO Q6H PRN nausea and vomiting 04/06/23 04/06/23 tablet Previous Rx's ?Medication ?Instructions ?Recorded promethazine 25 mg rectal 25 mg LA Q6H PRN nausea and 04/06/23 suppository vomiting #12 ea promethazine 25 mg tablet 25 mg PO Q6H PRN nausea and 04/06/23 vomiting #14 tabs Allergies Allergy/AdvReac Type Severity Reaction Status Date / Time No Known Drug Allergies Allergy Verified 09/11/23 19:54 Review of Systems ROS Constitutional Denies: fever or chills Ears, nose, mouth, and throat Denies: throat pain or nasal congestion Cardiovascular Denies: chest pain Respiratory Denies: shortness of breath or cough Gastrointestinal Reports: abdominal pain, nausea and vomiting; Denies: diarrhea Genitourinary Reports: pelvic pain; Denies: painful urination Musculoskeletal Denies: back pain Integumentary/Breast Denies: rash Hematologic/Lymphatic Denies: easy bruising or easy bleeding Exam Narrative Exam Narrative: Gen.: Awake, alert, in no distress Head: Normocephalic, atraumatic ENT: Moist mucous membranes Respiratory: No respiratory distress, lungs clear bilaterally Cardio: Regular rate and rhythm Gastrointestinal: Abdomen is soft, nondistended and Diffusely mildly tender in the pelvis, no guarding or rebound. No pain out of proportion on exam Extremities: Moves extremities equally Psych: Normal mood and affect Neuro: No focal neuro deficit Skin: Warm, dry, intact Constitutional Vital Signs, click to edit/add: Last Vital Signs Temp 98.1 F 09/11/23 19:50 Pulse 91 H 09/11/23 22:00 Resp 16 09/11/23 22:00 BP 107/64 09/11/23 22:00 Pulse Ox 100 09/11/23 22:00 O2 Del Method Room Air 09/11/23 22:00 Course Vital Signs Vital signs: Vital Signs Temperature 98.1 F 09/11/23 19:50 Pulse Rate 75 09/11/23 19:50 Respiratory Rate 16 09/11/23 19:50 Blood Pressure 117/76 09/11/23 19:50 Pulse Oximetry 100 09/11/23 19:50 Oxygen Delivery Method Room Air 09/11/23 19:50 Temperature 98.1 F 09/11/23 19:50 Pulse Rate 91 H 09/11/23 22:00 Respiratory Rate 16 09/11/23 22:00 Blood Pressure 107/64 09/11/23 22:00 Pulse Oximetry 100 09/11/23 22:00 Oxygen Delivery Method Room Air 09/11/23 22:00 MDM - Abdominal Pain MDM Narrative Medical decision making narrative: 2211: Patient was treated with IV fluids, Toradol for comfort and Zofran and Pepcid for vomiting. She has been told in the past she has a history of cyclic vomiting. The patient and her family member at bedside are not receptive to this diagnosis.. I evaluated the patient's folliculitis to the left groin. There is a small area of induration consistent with healing folliculitis, no fluctuant abscess or cellulitis. Patient was encouraged to keep warm compresses to this area. Lab studies obtained showing the patient again has leukocytosis, the same as previous visit in March of this year. Her electrolytes are unremarkable and test is negative. She was sent for CT of the abdomen and pelvis. Results are pending at this time. Case is turned over to attending physician at this time for disposition at this time SHARED APC VISIT, PHYSICIAN ATTESTATION: [id number] I performed a substantive part of the MDM during the patient?s E/M visit. I personally evaluated and examined the patient. I personally made or approved the documented management plan and acknowledge its risk of complications. Medical Records Attestation: I reviewed the patient's medical records. Lab Data Attestation: I reviewed the patient's lab results. Labs: Lab Results 09/11/23 09/11/23 Range/Units 20:02 20:06 WBC 17.8 H (4.0-11.0) 10^3/uL RBC 5.67 H (4.20-5.40) 10^6/uL Hgb 14.5 (12.0-16.0) g/dL Hct 45.6 (36.0-48.0) % MCV 80.4 L (81.0-99.0) fL MCH 25.6 L (26.7-34.0) pg MCHC 31.8 (29.9-35.2) g/dL RDW 13.0 (11.0-15.0) % Plt Count 313 (150-450) 10^3/uL MPV 11.7 (9.5-13.5) fL Neut % (Auto) 79.6 H (43.0-75.0) % Lymph % (Auto) 14.3 L (20.5-60.0) % Traverse % (Auto) 5.1 (1.7-12.0) % Eos % (Auto) 0.3 L (0.9-7.0) % Baso % (Auto) 0.5 (0.2-2.0) % Neut # (Auto) 14.2 H (1.4-6.5) 10^3/uL Lymph # (Auto) 2.5 (1.2-3.8) 10^3/uL Traverse # (Auto) 0.9 H (0.3-0.8) 10^3/uL Eos # (Auto) 0.1 (0.0-0.7) 10^3/uL Baso # (Auto) 0.1 (0.0-0.1) 10^3/uL Abs Immat Gran (auto) 0.04 H (0.00-0.03) 10^3/uL Imm/Tot Granulo (auto) 0.2 (0.0-0.5) % Sodium 140 (136-145) mmol/L Potassium 3.9 (3.5-5.1) mmol/L Chloride 102 (98-107) mmol/L Carbon Dioxide 26.1 (21.0-32.0) mmol/L Anion Gap 15.8 BUN 11.0 (7.0-18.0) mg/dL Creatinine 0.89 (0.55-1.02) mg/dL Est GFR ( Amer) >60 (>=60) Est GFR (Non-Af Amer) >60 (>=60) BUN/Creatinine Ratio 12.4 Glucose 109 H (74-106) mg/dL Calcium 9.7 (8.5-10.1) mg/dL Serum HCG, Qual Negative (NEGATIVE) Discharge Plan Discharge Stand Alone Forms: Portal Instructions Chief Complaint: Abdominal Pain Clinical Impression: Cyclic vomiting syndrome Patient Disposition: Home, Self-Care Time of Disposition Decision: 00:12 Condition: Good Prescriptions / Home Meds: No Action ibuprofen 800 mg tablet 800 mg PO TID PRN (Reason: fever or pain) ondansetron 4 mg tablet,disintegrating 4 mg PO Q6H PRN (Reason: nausea and vomiting) promethazine 25 mg tablet 25 mg PO Q6H PRN (Reason: nausea and vomiting) Qty: 14 0RF promethazine 25 mg suppository 25 mg LA Q6H PRN (Reason: nausea and vomiting) Qty: 12 0RF Print Language: Qatari Instructions: Acute Nausea and Vomiting (ED) Referrals: Physician,Non-Staff, [Physician] - 1 week Documented by User: Daniela Cesar MD 09/12/23 00:16 HPI - Abdominal Pain General Chief Complaint: Abdominal Pain Stated Complaint: vomitting cont Time Seen by Provider: 09/11/23 19:43 Related Data Home Medications ?Medication ?Instructions ?Recorded ?Confirmed ibuprofen 800 mg tablet 800 mg PO TID PRN fever or pain 04/06/23 04/06/23 ondansetron 4 mg disintegrating 4 mg PO Q6H PRN nausea and vomiting 04/06/23 04/06/23 tablet Previous Rx's ?Medication ?Instructions ?Recorded promethazine 25 mg rectal 25 mg LA Q6H PRN nausea and 04/06/23 suppository vomiting #12 ea promethazine 25 mg tablet 25 mg PO Q6H PRN nausea and 04/06/23 vomiting #14 tabs Allergies Allergy/AdvReac Type Severity Reaction Status Date / Time No Known Drug Allergies Allergy Verified 09/11/23 19:54 Exam Constitutional Vital Signs, click to edit/add: Last Vital Signs Temp 98.1 F 09/11/23 19:50 Pulse 91 H 09/11/23 22:00 Resp 16 09/11/23 22:00 BP 107/64 09/11/23 22:00 Pulse Ox 100 09/11/23 22:00 O2 Del Method Room Air 09/11/23 22:00 Course Vital Signs Vital signs: Vital Signs Temperature 98.1 F 09/11/23 19:50 Pulse Rate 75 09/11/23 19:50 Respiratory Rate 16 09/11/23 19:50 Blood Pressure 117/76 09/11/23 19:50 Pulse Oximetry 100 09/11/23 19:50 Oxygen Delivery Method Room Air 09/11/23 19:50 Temperature 98.1 F 09/11/23 19:50 Pulse Rate 91 H 09/11/23 22:00 Respiratory Rate 16 09/11/23 22:00 Blood Pressure 107/64 09/11/23 22:00 Pulse Oximetry 100 09/11/23 22:00 Oxygen Delivery Method Room Air 09/11/23 22:00 MDM - Abdominal Pain MDM Narrative Medical decision making narrative: 2211: Patient was treated with IV fluids, Toradol for comfort and Zofran and Pepcid for vomiting. She has been told in the past she has a history of cyclic vomiting. The patient and her family member at bedside are not receptive to this diagnosis.. I evaluated the patient's folliculitis to the left groin. There is a small area of induration consistent with healing folliculitis, no fluctuant abscess or cellulitis. Patient was encouraged to keep warm compresses to this area. Lab studies obtained showing the patient again has leukocytosis, the same as previous visit in March of this year. Her electrolytes are unremarkable and test is negative. She was sent for CT of the abdomen and pelvis. Results are pending at this time. Case is turned over to attending physician at this time for disposition at this time This patient was seen and evaluated in conjunction with the physician medical services assistant. She presents for evaluation of nausea vomiting, generalized abdominal pain. She was medicated with IV fluids and Zofran and Pepcid as well as Toradol. She states she is feeling better and has not vomited recently although she is still having some dry heaves. She does have an elevated white count at 17.8 which is the same as her prior CBC. Her test was negative. Electrolytes are normal. She was sent for a CT scan but does not wish to wait for the final results of the scan and wishes to have us call her if anything is abnormal. She uses Phenergan for nausea and vomiting will be discharged home with a prescription for Phenergan as she states Zofran does not help her. SHARED APC VISIT, PHYSICIAN ATTESTATION: [id number] I performed a substantive part of the MDM during the patient?s E/M visit. I personally evaluated and examined the patient. I personally made or approved the documented management plan and acknowledge its risk of complications. Lab Data Labs: Lab Results 09/11/23 09/11/23 Range/Units 20:02 20:06 WBC 17.8 H (4.0-11.0) 10^3/uL RBC 5.67 H (4.20-5.40) 10^6/uL Hgb 14.5 (12.0-16.0) g/dL Hct 45.6 (36.0-48.0) % MCV 80.4 L (81.0-99.0) fL MCH 25.6 L (26.7-34.0) pg MCHC 31.8 (29.9-35.2) g/dL RDW 13.0 (11.0-15.0) % Plt Count 313 (150-450) 10^3/uL MPV 11.7 (9.5-13.5) fL Neut % (Auto) 79.6 H (43.0-75.0) % Lymph % (Auto) 14.3 L (20.5-60.0) % Traverse % (Auto) 5.1 (1.7-12.0) % Eos % (Auto) 0.3 L (0.9-7.0) % Baso % (Auto) 0.5 (0.2-2.0) % Neut # (Auto) 14.2 H (1.4-6.5) 10^3/uL Lymph # (Auto) 2.5 (1.2-3.8) 10^3/uL Traverse # (Auto) 0.9 H (0.3-0.8) 10^3/uL Eos # (Auto) 0.1 (0.0-0.7) 10^3/uL Baso # (Auto) 0.1 (0.0-0.1) 10^3/uL Abs Immat Gran (auto) 0.04 H (0.00-0.03) 10^3/uL Imm/Tot Granulo (auto) 0.2 (0.0-0.5) % Sodium 140 (136-145) mmol/L Potassium 3.9 (3.5-5.1) mmol/L Chloride 102 (98-107) mmol/L Carbon Dioxide 26.1 (21.0-32.0) mmol/L Anion Gap 15.8 BUN 11.0 (7.0-18.0) mg/dL Creatinine 0.89 (0.55-1.02) mg/dL Est GFR ( Amer) >60 (>=60) Est GFR (Non-Af Amer) >60 (>=60) BUN/Creatinine Ratio 12.4 Glucose 109 H (74-106) mg/dL Calcium 9.7 (8.5-10.1) mg/dL Serum HCG, Qual Negative (NEGATIVE) Discharge Plan Discharge Stand Alone Forms: Portal Instructions Chief Complaint: Abdominal Pain Clinical Impression: Cyclic vomiting syndrome Patient Disposition: Home, Self-Care Time of Disposition Decision: 00:12 Condition: Good Prescriptions / Home Meds: No Action ibuprofen 800 mg tablet 800 mg PO TID PRN (Reason: fever or pain) ondansetron 4 mg tablet,disintegrating 4 mg PO Q6H PRN (Reason: nausea and vomiting) promethazine 25 mg tablet 25 mg PO Q6H PRN (Reason: nausea and vomiting) Qty: 14 0RF promethazine 25 mg suppository 25 mg LA Q6H PRN (Reason: nausea and vomiting) Qty: 12 0RF Print Language: Qatari Instructions: Acute Nausea and Vomiting (ED) Referrals: Physician,Non-Staff, [Physician] - 1 week
[2023-09-11] MEDS: 0.9 % SODIUM CHLORIDE 1,000 ML 999 ML IV (20:29)
[2023-09-11] MEDS: ONDANSETRON PF 4 MG/2 ML VIAL IV (20:30)
[2023-09-11] MEDS: FAMOTIDINE/PF 20 MG/2 ML VIAL IV (20:33)
[2023-09-11] MEDS: KETOROLAC TROMETHAMINE 30 MG/ML VIAL IVP (20:35)
[2023-09-11 20:38] LABS: Basophils Absolute Auto 0.1 10^3/uL (0.0-0.1); Basophils Percent Auto 0.5 % (0.2-2.0); Eosinophils Absolute Auto 0.1 10^3/uL (0.0-0.7); Eosinophils Percent Auto 0.3 % (0.9-7.0); Hematocrit 45.6 % (36.0-48.0); Hemoglobin 14.5 g/dL (12.0-16.0); Immature Granulocytes Abs Auto 0.04 10^3/uL (0.00-0.03); Immature Granulocytes Pct Auto 0.2 % (0.0-0.5); Lymphocytes Absolute Auto 2.5 10^3/uL (1.2-3.8); Lymphocytes Percent Auto 14.3 % (20.5-60.0); Mean Corpuscular HGB Conc 31.8 g/dL (29.9-35.2); Mean Corpuscular Hemoglobin 25.6 pg (26.7-34.0); Mean Corpuscular Volume 80.4 fL (81.0-99.0); Mean Platelet Volume 11.7 fL (9.5-13.5); Monocytes Absolute Auto 0.9 10^3/uL (0.3-0.8); Monocytes Percent Auto 5.1 % (1.7-12.0); Neutrophils Absolute Auto 14.2 10^3/uL (1.4-6.5); Neutrophils Percent Auto 79.6 % (43.0-75.0); Platelet Count 313 10^3/uL (150-450); Red Blood Count 5.67 10^6/uL (4.20-5.40); White Blood Count 17.8 10^3/uL (4.0-11.0)
[2023-09-11 20:49] LABS: Anion Gap 15.8; BUN Creatinine Ratio 12.4; Calcium 9.7 mg/dL (8.5-10.1); Carbon Dioxide 26.1 mmol/L (21.0-32.0); Chloride 102 mmol/L (98-107); Estimated GFR (African America >60 (>=60); Estimated GFR (Non-African Ame >60 (>=60); Glucose 109 mg/dL (74-106); Potassium 3.9 mmol/L (3.5-5.1); Sodium 140 mmol/L (136-145)
[2023-09-11 20:59] LABS: HCG Qualitative NEGATIVE (NEGATIVE); Internal Control Within Normal Limits
[2023-09-11] MEDS: PROMETHAZINE HCL 12.5 MG in 0.9 % SODIUM CHLORIDE 50 ML 202 MG IV (21:25)
[2023-09-11 22:00] VITALS: BP 107/64; PULSE 91; O2SAT 100
[2023-09-12 00:13] VITALS: BP 118/78; PULSE 80; O2SAT 100
== END 2023-09-12 00:30 | disposition home or self-care (01) ==
PROVIDERS: Physician Assistant; Emergency Provider Emergency Medicine; PCP Nurse Practitioner Family
DX: R11.15 Cyclical vomiting syndrome unrelated to migraine (principal)
CPT/HCPCS: 36415; 74177; 80048; 80307; 84703; 85025; 96361; 96365; 96375; 99284; J1885; J2250; J2405; Q9967

== ENCOUNTER 2023-10-01 09:32 | Emergency (ER) | payer OTHER, SELFPAY ==
[2023-10-01 09:36] VITALS: BP 131/80; PULSE 98; TEMP 36.9; O2SAT 100; BMI 28.4
--- OUTSIDE RECORDS SUMMARY | 2023-10-01 09:37 | XMS_ITS | CCD ---
Author Organization [facility] Care Team Providers Care Electronic Systems Technician Name Role Phone MARKER, DR ALEGRIA Attending Unavailable MARKER, DR ALEGRIA Admitting Unavailable HO ALEXANDER Consulting Unavailable [facility], DR PRECIADO Primary Care Unavailable NO FAMILY, PHYSICIAN Primary Care Provider Unava ilJOHANNA Young Emergency Provider Fredy Cobian Attending Unavailable Fredy [...] Anion gap [Moles/Vol] 6 mmol/L Normal 5-15 [facility] Comment on above: Performed By: #### B KATELYN CBCA #### [facility] ([id number]) [address] [place] [address] 18459 Calcium [Mass/Vol] 8.6 mg/dL Normal 8.5-10.5 [facility] Comment on above: Performed By: #### B KATELYN CBCA #### [facility] ([id number]) [address] [place] [address] 91598 Chloride [Moles/Vol] 109 mmol/L Normal 98-109 [facility] Comment on above: Performed By: #### Edwige ZEPEDA CBCA #### [facility] ([id number]) [address] [place] [address] 92896 CO2 [Moles/Vol] 24 mmol/L Normal 22-32 [facility] Comment on above: Performed By: #### Edwige ZEPEDA CBCA #### [facility] ([id number]) [address] [place] [address] 65568 Creatinine [Mass/Vol] 0.72 mg/dL Normal 0.40-1.00 [facility] Comment on above: Result Comment: METH OD TRACEABLE TO IDMS STANDARD Performed By: #### B KATELYN CBCA #### [facility] ([id number]) [address] [place] [address] 55650 eGFR (CKD-EPI) NON-RACE DEPENDENT >90 Normal >59 [facility] Comment on above: Result Comment: Reported eGFR is based on the CKD-EPI 2020 equation that does not use a race coefficient. Performed By: #### B KATELYN CBCA #### [facility] ([id number]) [address] [place] [address] 59067 Glucose [Mass/Vol] 97 mg/dL Normal 65-99 [facility] Comment on above: Performed By: #### B KATELYN CBCA #### [facility] ([id number]) [address] [place] [address] 31705 Potassium [Moles/Vol] 3.2 mmol/L Low 3.5-5.0 [facility] Comment on above: Performed By: #### B KATELYN CBCA #### [facility] ([id number]) [address] [place] [address] 56632 Sodium [Moles/Vol] 139 mmol/L Normal 134-146 [facility] Comment on above: Performed By: #### B KATELYN CBCA #### [facility] ([id number]) [address] [place] [address] 98846 Urea nitrogen [Mass/Vol] 6 mg/dL Normal 5-23 [facility] Comment on above: Performed By: #### B KATELYN CBCA #### [facility] ([id number]) [address] [place] [address] 85494 CBC AND AUTO DIFFon -30-20 24 ABSOLUTE BASOPHIL 0.1 X10E9/L Normal 0.0-0.2 [facility] Comment on above: Performed By: #### B KATELYN, CBCA #### [facility] ([id number]) [address] [place] [address] 86884 ABSOLUTE NEUTROPHIL 10.3 X10E9/L High 1.5-6.6 [facility] Comment on above: Performed By: #### B MP, CBCA #### [facility] ([id number]) [address] [place] [address] 20071 Basophils/100 WBC (Bld) 0.6 % Normal [facility] Comment on above: Performed By: #### B MP, CBCA #### [facility] ([id number]) [address] [place] [address] 50522 Eosinophils (Bld) [#/Vol] 0.2 10*3/uL Normal 0.0-0.4 [facility] Comment on above: Performed By: #### B MP, CBCA #### [facility] ([id number]) [address] [place] [address] 19417 Eosinophils/100 WBC (Bld) 1.2 % Normal [facility] Comment on above: Performed By: #### B MP, CBCA #### [facility] ([id number]) [address] [place] [address] 04999 Erythrocyte distribution width (RBC) [Ratio] 13.1 % Normal 11.5-15.0 [facility] Comment on above: Performed By: #### B MP, CBCA #### [facility] ([id number]) [address] [place] [address] 33019 Hematocrit (Bld) [Volume fraction] 38.7 % Normal 35-47 [facility] Comment on above: Performed By: #### B MP, CBCA #### [facility] ([id number]) [address] [place] [address] 02044 Hemoglobin (Bld) [Mass/Vol] 12.7 g/dL Normal 11.7-15.5 [facility] Comment on above: Performed By: #### B MP, CBCA #### [facility] ([id number]) [address] [place] [address] 59064 Lymphocytes (Bld) [#/Vol] 3.0 10*3/uL Normal 1.0-3.5 [facility] Comment on above: Performed By: #### B KATELYN, CBCA #### [facility] ([id number]) [address] [place] [address] 04335 Lymphocytes/100 WBC (Bld) 20.4 % Normal [facility] Comment on above: Performed By: #### B KATELYN, CBCA #### [facility] ([id number]) [address] [place] [address] 32728 MCH (RBC) [Entitic mass] 26.1 pg Low 27-34 [facility] Comment on above: Performed By: #### B KATELYN, CBCA #### [facility] ([id number]) [address] [place] [address] 03412 MCHC (RBC) [Mass/Vol] 32.9 g/dL Normal 32-36 [facility] Comment on above: Performed By: #### B KATELYN, CBCA #### [facility] ([id number]) [address] [place] [address] 08728 MCV (RBC) [Entitic vol] 79 fL Low 80-100 [facility] Comment on above: Performed By: #### B KATELYN, CBCA #### [facility] ([id number]) [address] [place] [address] 00871 Monocytes (Bld) [#/Vol] 1.1 10*3/uL High 0-0.9 [facility] Comment on above: Performed By: #### B KATELYN, CBCA #### [facility] ([id number]) [address] [place] [address] 98270 Monocytes/100 WBC (Bld) 7.4 % Normal [facility] Comment on above: Performed By: #### B KATELYN, CBCA #### [facility] ([id number]) [address] [place] [address] 33487 Neutrophils/100 WBC (Bld) 70.4 % Normal [facility] Comment on above: Performed By: #### B MP, CBCA #### [facility] ([id number]) [address] [place] [address] 72716 Platelet mean volume (Bld) [Entitic vol] 10.0 fL Normal 7-12 [facility] Comment on above: Performed By: #### B MP, CBCA #### [facility] ([id number]) [address] [place] [address] 54167 Platelets (Bld) [#/Vol] 199 10*3/uL Normal 150-450 [facility] Comment on above: Performed By: #### B MP, CBCA #### [facility] ([id number]) [address] [place] [address] 20849 RBC COUNT 4.88 X10E12/L Normal 3.80-5.20 [facility] Comment on above: Performed By: #### B MP, CBCA #### [facility] ([id number]) [address] [place] [address] 16703 WBC (Bld) [#/Vol] 14.6 10*3/uL High 4.0-11.0 [facility] Comment on above: Performed By: #### B MP, CBCA #### [facility] ([id number]) [address] [place] [address] 52986 HCG ( test) Ql (U)o n 04-11-2023 Beta HCG ( test) Ql (U) Negative Normal NEG [facility] Comment on above: Performed By: #### 2 106-3 #### [facility] ([id number]) [address] [place] [address] 13041 SUPERFICIAL WOUND CULTUREon 04-11-2023 Bacteria identified Aer cx Nom (Wound) GRAM STAIN >25 WHITE BLOOD CELLS/LPF 1 to 9 SQUAMOUS EPITHELIAL CELLS/LPF MANY GRAM POSITIVE COCCI IN CLUSTERS MANY GRAM POSITIVE COCCI IN PAIRS MANY GRAM NEGATIVE COCCOBACILLI SMEAR REVIEWED REPORT UPDATED REVIEWED BY TECH III CULTURE RESULTS RARE NORMAL URO GENITAL KARLA Normal [facility] Comment on above: Performed By: #### 6 32-0 #### [facility] ([id number]) [address] [place] [address], [address] [place] [address] URN MACROSCOPIC NURon 2023 BILIRUBIN DEVORA Negative Normal NEG [facility] Comment on above: Performed By: #### N UM #### [facility] ([id number]) [address] [place] [address] 34955 BLOOD/HGB DEVORA Large Abnormal NEG [facility] Comment on above: Performed By: #### N UM #### [facility] ([id number]) [address] [place] [address] 67564 GLUCOSE DEVORA Negative Normal NEG [facility] Comment on above: Performed By: #### N UM #### [facility] ([id number]) [address] [place] [address] 96747 KETONES DEVORA Negative Normal NEG [facility] Comment on above: Performed By: #### N UM #### [facility] ([id number]) [address] [place] [address] 19802 LEUKOCYTE ESTERASE DEVORA Small Abnormal NEG [facility] Comment on above: Performed By: #### N UM #### [facility] ([id number]) [address] [place] [address] 31071 NITRITE DEVORA Negative Normal [facility] Comment on above: Performed By: #### N UM #### [facility] ([id number]) [address] [place] [address] 30684 PH DEVORA 6.0 Normal 5.0-8.5 [facility] Comment on above: Performed By: #### N UM #### [facility] ([id number]) [address] [place] [address] 45537 PROTEIN DEVORA 30 mg/dL Abnormal NEG [facility] Comment on above: Performed By: #### N UM #### [facility] ([id number]) [address] [place] [address] 84664 SPECIFIC GRAVITY DEVORA >=1.030 Normal 1.003-1.035 [facility] Comment on above: Performed By: #### N UM #### [facility] ([id number]) [address] [place] [address] 00228 UROBILINOGEN DEVORA 0.2 eu/dL Normal <1.1 [facility] Comment on above: Performed By: #### N UM #### [facility] ([id number]) [address] [place] [address] 05757 HCG ( test) Ql (U)o n 04-06-2023 Beta HCG ( test) Ql (U) Negative Normal NEG [facility] Comment on above: Performed By: #### 2 106-3 #### [facility] ([id number]) [address] [place] [address] 20426 URINE CULTUREon 04-06-2023 Bacteria identified Cx Nom (U) CULTURE RESULTS NO GROWTH AT <1000 CFU/mL Normal [facility] Comment on above: Performed By: #### 6 30-4 #### [facility] ([id number]) [address], [address] [place] [address] URN MACROSCOPIC NURon 2023 BILIRUBIN DEVORA Small Abnormal NEG [facility] Comment on above: Performed By: #### N UM #### [facility] ([id number]) [address] [place] [address] 16341 BLOOD/HGB DEVORA Large Abnormal NEG [facility] Comment on above: Performed By: #### N UM #### [facility] ([id number]) [address] [place] [address] 39328 GLUCOSE DEVORA Negative Normal NEG [facility] Comment on above: Performed By: #### N UM #### [facility] ([id number]) [address] [place] [address] [place] [address] KETONES DEVORA >=160 Abnormal NEG [facility] Comment on above: Performed By: #### N UM #### [facility] ([id number]) [address] [place] [address] 33965 LEUKOCYTE ESTERASE DEVORA Trace Abnormal NEG [facility] Comment on above: Performed By: #### N UM #### [facility] ([id number]) [address] [place] [address] 08107 NITRITE DEVORA Negative Normal NEG [facility] Comment on above: Performed By: #### N UM #### [facility] ([id number]) [address] [place] [address] 57082 PH DEVORA 8.5 Normal 5.0-8.5 [facility] Comment on above: Performed By: #### N UM #### [facility] ([id number]) [address] [place] [address] 61783 PROTEIN DEVORA 100 mg/dL Abnormal NEG [facility] Comment on above: Performed By: #### N UM #### [facility] ([id number]) [address] [place] [address] 14678 SPECIFIC GRAVITY DEVORA 1.020 Normal 1.003-1.035 [facility] Comment on above: Performed By: #### N UM #### [facility] ([id number]) [address] [place] [address] [place] [address] UROBILINOGEN DEVORA 0.2 eu/dL Normal <1.1 [facility] Comment on above: Performed By: #### N UM #### [facility] ([id number]) [address] [facility] [place] [address] COVID-19 Antigenon 3 COVID-19 Antigen Healthcare Worker?: [...] developed and its performance characteristic determined by [employer] and validated at [facility]. This test has not been FDA [...] for SARS Antigen by RODERICK PERFORMED BY: [facility] [address] [address] PATHOLOGIST CHEESE TESTER SHAYLA LEAVITT M.D. Normal [facility] Comment on above: Performed By: #### C OVID-19 BILLY, SOFIANEG #### [facility] [address] [place] [address] [facility] Billy Ag Negativeon 08-11-19 Billy Ag Negative Negative Normal Negative [facility] Comment on above: Result Comment: This is a duplicate Billy SARS Antigen (RODERICK) result to be used for statistical tracking purpose only. PERFORMED BY: [facility] [address] [place] [address] PATHOLOGIST CHEESE TESTER SHAYLA LEAVITT M.D. Performed By: #### C OVID-19 BILLY, SOFIANEG #### [facility] [address] [place] [id number] [facility] Vital Signs Date Time Vital Sign Value Performing Clinician Faci lity 04-17-2023 15:57-0500 Body mass index (BMI) [Ratio] 23.69 kg/m2 Dacia Rose MD Work Phone: [facility] 04-17-2023 15:57-0500 Body weight 56.88 kg Dacia Rose MD Work Phone: [facility] 04-17-2023 15:57-0500 Diastolic blood pressure 66 mm[Hg] Dacia Rose MD Work Phone: [facility] 04-17-2023 15:57-0500 Systolic blood pressure 104 mm[Hg] Dacia Rose MD Work Phone: [facility] 08-10-2022 11:26-0400 Body height 154.94 cm PHYSICIAN NO [facility] 08-10-2022 11:26-0400 Body temperature 98.6 [degF] PHYSICIAN NO [facility] 08-10-2022 11:26-0400 Body weight 53.35 kg PHYSICIAN NO [facility] 08-10-2022 11:26-0400 Diastolic blood pressure 79 mm[Hg] PHYSICIAN NO [facility] 08-10-2022 11:26-0400 Heart rate 85 /min PHYSICIAN NO [facility] 08-10-2022 11:26-0400 Respiratory rate 16 /min PHYSICIAN NO [facility] 08-10-2022 11:040 SaO2% (BldA) [Mass fraction] 100 % PHYSICIAN NO [facility] 08-10-2022 11:040 Systolic blood pressure 122 mm[Hg] PHYSICIAN NO [facility] Encounters Encounter Date Encounter Type Care Provider Facility Start: 04-17-2023 End: 04-17-2023 ambulatory DACIA ROSE [facility] Start: 04-17-2023 End: 04-17-2023 Office outpatient visit 15 minutes Dacia Rose MD Work Phone: [facility] Comment on above: Labial abscess (Prim malu Dx) Start: 04-14-2023 Telephone encounter Mignon Mar RN [facility] Start: 04-12-2023 Telephone encounter Amy fitzpatrick DO Work Phone: [facility] [place] Start: 04-11-2023 End: 04-11-2023 Emergency department patient visit NO PCP NO PCP [facility] Start: 04-11-2023 End: 04-11-2023 ambulatory LUCA ODOM Not Available Start: 04-06-2023 End: 04-06-2023 Emergency department patient visit NO PCP NO PCP [facility] Start: 08-10-2022 End: 08-10-2022 Emergency department patient visit Fredy Aranza Facility:[facility] Start: 08-10-2022 End: 08-10-2022 Emergency department patient visit PHYSICIAN NO [facility] Work Phone: Start: 07-29-2020 End: 07-29-[address] RAIJ MORENO Facility:[facility]1 Procedures Date Procedure Procedure Detail Performing Clinician Start: 04-17-2023 Follow-up visit Follow-up DACIA ROSE Plan of Treatment Date Care Activity Detail Author Start: 12-21-2025 DTaP,Tdap and Td Vaccines (6 - Td or Tdap) DTaP,Tdap and Td Vaccines (6 - Td or Tdap) [facility] Start: 02-05-2025 Adult BMI Screening Adult BMI Screen ing [facility] Start: 04-17-2024 Tobacco Screening Tobacco Screening [facility] Start: 04-11-2024 Tobacco Screening Tobacco Screening [facility] Start: 04-06-2024 Adult BMI Screening Adult BMI Screen ing [facility] Start: 04-18-2023 End: 04-18-2023 Patient encounter procedure 04/18/2023 2:15 PM EST Office Visit [facility] [facility] [place] [id number] Dacia Rose MD [facility] [place] [address] [facility] Start: 04-17-2023 End: 04-17-2023 Patient encounter procedure 04/17/2023 3:45 PM EST Office Visit [facility] [place] [phone] Dacia Rose MD [facility] [place] [address] [facility] Start: 11-11-2022 Influenza vaccination Influenza Vacc ine [facility] Start: 08-10-2022 SARS Antigen (LFIA) SARS Antigen (LF IA) [facility] Start: 08-10-2022 [facility] Start: 2015 Depression Screening Depression Scre ening [facility] Start: 2003 Screening for Chlamy chelsie trachomatis Chlamydia Screening [facility] Start: 2003 Tobacco Counseling Tobacco Counselin g [facility] Patient Education Viral Syndrome (DC) [facility] Work Phone: Patient referral [facility] Work Phone: Immunizations Immunization Date Immunization Notes Care Provider Lexi ruiz 07-05-2005 influenza virus vaccine, unspecified formulation Amy Govea DO Work Phone: [facility] Payers Date Payer Category Payer Private Health Insurance [id number] 2023 [place] [id number] 2023-Present [phone] [address] [place] [address] [id number] 2023 Medicaid [id number] 2022 Self-pay 2019 Private Health Insurance LEONCAMELIA ROMEO-OPEN ACCESS PLUS (OAP,OA PLUS) [id number] 2019-Present [phone] [address] [place] [address] [id number] 2003 Unknown [id number] 2003 Unknown [id number] 2003 Unknown [id number] 2003 Unknown [id number] 1982 Unknown [id number] 1959 Private Health Insurance [id number] Unknown [id number] Social History Date Type Detail Facility Start: 08-10-2022 Tobacco smoking stat [facility] Smoker (finding) [facility] Start: 2003 Sex Assigned At Female F [facility] Start: 01-01-2023 Tobacco smoking stat [facility] Smokes tobacco daily [facility] History of tobacco use [facility]igarette [facility] History of tobacco use Cigar Smoker [facility] Start: 01-01-2023 Tobacco use and exposure Smokeless tobacco non-user [facility] Start: 04-11-2023 End: 04-17-2023 Alcohol intake Ex-drinker (finding) [facility] Start: 04-23-2020 End: 04-11-2023 History of Social function [facility] Start: 04-23-2020 End: 04-11-2023 Tobacco use panel [facility] Childcare Unknown [facility] Start: 2003 Sex Assigned At Not on file P [facility] History of Present illness Narrative 04-17-2023 Dacia [...] Danya LOREDO RN documented in this encounter [facility] Note 04-14-2023 Telephone Encounter - Mignon Mar [...] call the office and speak to the freight conductor provider. She verbalized she understood. PETER Azul [facility] Tele[facility] encounter Note 04-14-2023 Telephone Encounter - [...] call the office and speak to the freight conductor provider. She verbalized she understood. PETER Azul [facility] Note 04-12-2023 Telephone Encounter - Annmarie Tom [...] do so now. documented in this encounter [facility] Telephone encounter Note 04-12-2023 Telephone Encounter - [...] Note Facility Evaluation note No assessment information [facility] Work Phone: Evaluation note Note Date & [...] and content) DATE CREATED AUTHOR 08/06/2020 [facility] DATE CREATED AUTHOR AUTHOR'S ORGANIZ ATION 12/13/2022 [facility] DATE CREATED AUTHOR AUTHOR'S ORGANIZ ATION 04/12/2023 [facility] EPIC DATE CREATED AUTHOR AUTHOR'S ORGANIZ ATION 04/16/2023 [facility] DATE CREATED AUTHOR AUTHOR'S ORGANIZ ATION 04/22/2023 [facility] Care Teams (unrecognized sec tion and content) Team Status: Active Member Role Status Dates PHYSICIAN NO FAMILY Primary Care Provider Active Team Status: Inactive Member Role Status Dates PHYSICIAN NO FAMILY Primary Care Provider Active Fredy Cobian APRN Emergency Provider Active Electronic Systems Technician Relationship Specialty Start Date End Date No Pcp, [place] [address] PCP - General Family Medicine 04/06/23 Electronic Systems Technician Relationship Specialty Start Date End Date No Pcp, [place] [address] PCP - General Family Medicine 04/06/23 Electronic Systems Technician Relationship Specialty Start Date End Date No Pcp, [place] [address] PCP - General Family Medicine 04/06/23 Goals [...] BE BASED ON THE PRIMARY CLINICAL RECORDS. [facility]. provides no warranty or guarantee of the accuracy or completeness of information in this document.
--- NOTE | 2023-10-01 10:49 | ED_ITS ---
HPI - Abdominal Pain General Chief Complaint: Abdominal Pain Stated Complaint: FLANK PAIN Time Seen by Provider: 10/01/23 09:42 Source: patient Mode of arrival: walk-in Limitations: no limitations History of Present Illness HPI narrative: The patient is coming to the ER with a left lower quadrant abdominal pain that she been going on at least for a year although last month she had this diagnosed with a possible cyclic vomiting and ovarian cyst, the patient is coming to the ER for the sole request of having an ultrasound done The patient mentioned that she usually have nausea and vomiting and the pain sometimes could be epigastric it get better whenever she take a warm shower and is associated with nausea and vomiting The patient is not associated with any burning with urination or any change in bowel movement , no fever or chills Related Data Home Medications ?Medication ?Instructions ?Recorded ?Confirmed ibuprofen 800 mg tablet 800 mg PO TID PRN fever or pain 04/06/23 10/01/23 ondansetron 4 mg disintegrating 4 mg PO Q6H PRN nausea and vomiting 04/06/23 04/06/23 tablet Previous Rx's ?Medication ?Instructions ?Recorded promethazine 25 mg rectal 25 mg PA Q6H PRN nausea and 04/06/23 suppository vomiting #12 ea promethazine 25 mg tablet 25 mg PO Q6H PRN nausea and 04/06/23 vomiting #14 tabs Allergies Allergy/AdvReac Type Severity Reaction Status Date / Time No Known Drug Allergies Allergy Verified 09/11/23 19:54 Review of Systems ROS Status of ROS 10 or more systems reviewed and unremark able except as noted in history and below Exam Narrative Exam Narrative: Nurses notes and vital signs reviewed and patient is not hypoxic. General: Well-appearing and in no apparent distress. Skin: Warm, dry, no pallor noted. No rash. Head: Normocephalic, atraumatic. Neck: Supple, non-tender. Eye: Pupils are equal, round and EOMI. No scleral icterus. Ears, Nose, Mouth, and Throat: TM are clear, no nasal mucosal hypertrophy. Oral mucosa is moist, no posterior oropharynx erythema, uvula is mid-line Cardiovascular: Regular Rate and Rhythm without murmur, gallop or rub. Respiratory: No accessory muscle use or respiratory distress. Lungs are clear to auscultation, no wheezing, rales or rhonchi Chest Wall: no tenderness Back: No midline thoracic or lumbar vertebral tenderness. No CVA tenderness Musculoskeletal: normal ROM, no calf or popliteal tenderness, no lower extremity edema/swelling GI: Abdomen is soft, non-distended. Normal bowel sounds. No masses appreciated. No tenderness to palpation. No rebound, guarding, or rigidity noted. Neurological: A&O x4. No cranial nerve dysfunction observed. No truncal ataxia. Moves all extremities. Sensation intact. Psychiatric: Cooperative and interactive. Normal mood and affect. Constitutional Vital Signs, click to edit/add: Last Vital Signs Temp 98.5 F 10/01/23 09:36 Pulse 98 H 10/01/23 09:36 Resp 18 10/01/23 09:36 BP 131/80 10/01/23 09:36 Pulse Ox 100 10/01/23 09:36 O2 Del Method Room Air 10/01/23 09:36 Course Vital Signs Vital signs: Vital Signs Temperature 98.5 F 10/01/23 09:36 Pulse Rate 98 H 10/01/23 09:36 Respiratory Rate 18 10/01/23 09:36 Blood Pressure 131/80 10/01/23 09:36 Pulse Oximetry 100 10/01/23 09:36 Oxygen Delivery Method Room Air 10/01/23 09:36 Temperature 98.5 F 10/01/23 09:36 Pulse Rate 98 H 10/01/23 09:36 Respiratory Rate 18 10/01/23 09:36 Blood Pressure 131/80 10/01/23 09:36 Pulse Oximetry 100 10/01/23 09:36 Oxygen Delivery Method Room Air 10/01/23 09:36 MDM - Abdominal Pain MDM Narrative Medical decision making narrative: I could not elicit the pain with the examination although the patient did mention having some epigastric and left lower quadrant abdominal discomfort I did explain to the patient right now ovarian cyst diagnosis a month ago almost might need further evaluation by the PROFESSOR OF ENGLISH. But with the patient coming to the ER only requesting ultrasound at that I offered her some blood workup she mentioned that she just want the ultrasound to be done I also explained to her that we do not have any ultrasound to be done at the moment in the ER specially with the fact that the patient pain has been chronic and she does not have any pain at the moment that could be elicited with examination The patient mentioned that she will come back during the weekdays to get an ultrasound done although I did explain to her that in case of severe pain she have to go to the nearest ER and she will have to wait till tomorrow. The patient right now does not have any significant pain her pain is mostly secondary to cyclic vomiting and I could not elicit the pain that she is referring to in the left lower quadrant she already had a CAT scan done almost 20 days ago that showed this hemorrhagic cyst Patient just requested to leave as she knew that we do not have an electrical test technician to do the ultrasound at the moment Discharge Plan Discharge Stand Alone Forms: Portal Instructions Chief Complaint: Abdominal Pain Clinical Impression: Abdominal pain Qualifiers: Abdominal location: left lower quadrant Qualified Code(s): R10.32 - Left lower quadrant pain Patient Disposition: Home, Self-Care Time of Disposition Decision: 10:05 Condition: Good Mode of Transportation: Private Vehicle Prescriptions / Home Meds: No Action ibuprofen 800 mg tablet 800 mg PO TID PRN (Reason: fever or pain) ondansetron 4 mg tablet,disintegrating 4 mg PO Q6H PRN (Reason: nausea and vomiting) promethazine 25 mg tablet 25 mg PO Q6H PRN (Reason: nausea and vomiting) Qty: 14 0RF promethazine 25 mg suppository 25 mg PA Q6H PRN (Reason: nausea and vomiting) Qty: 12 0RF Print Language: Wolof Instructions: Abdominal Pain (ED) Referrals: LUCA ODOM [Primary Care Provider] - 1 week Discharge Date/Time: 10/01/23 10:14
== END 2023-10-01 10:14 | disposition home or self-care (01) ==
PROVIDERS: Emergency Provider Emergency Medicine; PCP Nurse Practitioner Family
DX: R10.32 Left lower quadrant pain (principal)
CPT/HCPCS: 99281

== ENCOUNTER 2023-11-15 10:48 | Outpatient (OUT) | payer OTHER, SELFPAY ==
--- NOTE | 2023-11-15 | XR_ITS ---
The [address] [address] Patient Name: FRANCISCO MADRID MRN: [id number] date: 2005 Sex: F Assigned Patient Location: [facility] Current Patient Location: [facility] Accession/Order Number: [id number] Exam Date: 11/15/2023 11:50 Report Date: 11/15/2023 12:27 At the request of: CASH KELLY Procedure: XR chest 2V PROCEDURE: XR chest 2V DATE: 11/15/2023 10:50 AM CDT COMPARISONS: None. CLINICAL INDICATION: 18 years Female Preop exam FINDINGS: Heart and mediastinum are within normal limits. The lungs are clear. There is no evidence of pleural effusion or pneumothorax. XR/XR chest 2V IMPRESSION: Chest radiograph is within normal limits. Electronically authenticated by: BRENDEN MAXWELL Date: 11/15/2023 12:27
--- OUTSIDE RECORDS SUMMARY | 2023-11-15 11:01 | XMS_ITS ---
Author Name Auto Generated Organization [facility] Care Team Providers Care Roaster Operator Name Role Phone LUCA ODOM Attending Unavailab LUCA Schrader Attending Unavailab JAY Armendariz Referring Unavailable CASH KELLY Attending Unavailable JAY ONEAL Referring Unavailable CASH KELLY Attending Unavailable NO PCP, NO PCP Primary Care Unavailable JOSSY ESTEVEZ Attending Unavailable NO PCP, NO PCP Primary Care Unavailable FABIO ROSE Attending Unavailable NO PCP, NO PCP Primary Care Unavailable PROBLEMS DATE TYPE CONDITION / CODE ATTENDING STATUS [facility] 04/17/2023 Unknown Follow-up / FREETEXT(AOF) FABIO ROSE [facility] 04/11/2023 Unknown Infection follow ing a procedure, other surgical site, initial encounter / T81.49XA(ICD-10) NA Active 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 REASON FOR EXAM: Pelvic pain. COMPARISON: None TECHNIQUE: High-resolution ultrasound is performed in the pelvis with color flow Doppler and spectral analysis. FINDINGS: Transabdominal Imaging - Not performed. Transvaginal Imaging: Uterus is typical in configuration. Endometrium is echogenic at 1.1 cm. In the submucosal portion of the left uterine wall is a hypoechoic nodule measuring 1.3 x 0.9 cm. Left ovary demonstrates several small follicles and appropriate Doppler flow. There is trace free pelvic fluid. Right ovary is not demonstrated. Measurements: Uterus: 6.8 x 5.2 x 3.2 cm EM: 1.8 cm Right Ovary: Not visualized Left Ovary: 3.3 x 2.4 x 1.7 cm IMPRESSION: 1. No acute abnormality or ovarian cyst is demonstrated. There is mild free pelvic fluid, nonspecific. 2. Submucosal myometrial mass likely represents a small fibroid. *This report is generated using voice recognition reporting (YOHO). On occasion Smallable[employer] erroneously drops words from the report or replaces the spoken word with similar sounding words. Please call with any questions/concerns regarding this report.* Dictated and transcribed 10/03/23/dpkim This report has been electronically signed and approved by the interpreting radiologist. Electronically Signed Matthew Arana M.D. 2023-10-03 17:04:30 SUPERFICIAL WOUND CULTURE Observed: 04/11/2023 2:55 PM Status: COMPLETED Source: [facility] REPOSITORY GRAM STAIN >25 WHITE BLOOD CELLS/LPF 1 to 9 SQUAMOUS EPITHELIAL CELLS/LPF MANY GRAM POSITIVE COCCI IN CLUSTERS MANY GRAM POSITIVE COCCI IN PAIRS MANY GRAM NEGATIVE COCCOBACILLI SMEAR REVIEWED REPORT UPDATED REVIEWED BY TECH III CULTURE RESULTS RARE NORMAL URO GENITAL KARLA Performed By: #### 632-0 ### # [facility] ([id number]) [address] [place] [address], [address] [place] [address] URINE NURSING Collected: 04/11/2023 1 :39 PM Status: COMPLETED Source: [facility] REPOSITORY TYPE CODE TESTS RESULT OUT OF RANGE REFERENCE UNITS LAB NUCG(LOINC) URINE NURSING Negative (qualifier value) NEG Performed By: #### 2106-3 ## ## [facility] ([id number]) [address] [place] [address], [place] [address] URN MACROSCOPIC DEVORA Collected: 04/11/19 1:37 PM Status: COMPLETED Source: [facility] REPOSITORY TYPE CODE TESTS RESULT OUT OF RANGE REFERENCE UNITS LAB SPGRN(LOINC) SPECIFIC GRAVITY DEVORA >=1.030 1.003-1.035 LAB LESTN(LOINC) LEUKOCYTE ESTERASE DEVORA Small Abnormal NEG LAB NITN(LOINC) NITRITE DEVORA Negative (qualifier value) NEG LAB PHURN(LOINC) PH DEVORA 6.0 5.0-8.5 LAB PRURN(LOINC) PROTEIN DEVORA 30 Abnormal NEG mg/dL LAB GLURN(LOINC) GLUCOSE DEVORA Negative (qualifier value) NEG mg/dL LAB KETN(LOINC) KETONES DEVORA Negative (qualifier value) NEG mg/dL LAB UROBN(LOINC) UROBILINOGEN DEVORA 0.2 <1.1 eu/dL LAB BILEN(LOINC) BILIRUBIN DEVORA Negative (qualifier value) NEG LAB BLURN(LOINC) BLOOD/HGB DEVORA Large Abnormal NEG Performed By: #### NUM #### [facility] ([id number]) [address] [place] [address] BASIC METABOLIC PANL Collected: 024 12:08 PM Status: COMPLETED Source: [facility] REPOSITORY TYPE CODE TESTS RESULT OUT OF RANGE REFERENCE UNITS LAB NA(LOINC) SODIUM 139 134-146 mmol/L LAB K(LOINC) POTASSIUM 3.2 Low 3.5-5.0 mmol/L LAB CL(LOINC) CHLORIDE 109 98-109 mmol/L LAB CO2(LOINC) CARBON DIOXIDE 24 22-32 mmol/L LAB AGAP(LOINC) ANION GAP 6 5-15 mmol/L LAB BUN(LOINC) BLOOD UREA NITROGEN 6 5-23 mg/dL LAB CRET(LOINC) CREATININE 0.72 0.40-1.00 mg/dL Result Comment: METHOD TRACE ABLE TO IDMS STANDARD LAB GLU(LOINC) GLUCOSE 97 65-99 mg/dL LAB CA(LOINC) CALCIUM 8.6 8.5-10.5 mg/dL LAB EGFR(LOINC) eGFR (CKD-EPI) NON-RACE DEPENDENT >90 >59 ml/min/1. 73sq.m Result Comment: Reported eGFR is based on the CKD-EPI 2020 equation that does not use a race coefficient. Performed By: #### BMP, CBCA #### [facility] ([id number]) [address] [place] [address] CBC AND AUTO DIFF Collected: 4 12:08 PM Status: COMPLETED Source: [facility] REPOSITORY TYPE CODE TESTS RESULT OUT OF RANGE REFERENCE UNITS LAB WBC(LOINC) WBC COUNT 14.6 High 4.0-11.0 X10E9/L LAB RBC(LOINC) RBC COUNT 4.88 3.80-5.20 X10E12/L LAB HGB(LOINC) HEMOGLOBIN 12.7 11.7-15.5 g/dL LAB HCT(LOINC) HEMATOCRIT 38.7 35-47 % LAB MCV(LOINC) MCV 79 Low 80-100 fL LAB MCH(LOINC) MCH 26.1 Low 27-34 pg LAB MCHC(LOINC) MCHC 32.9 32-36 g/dL LAB RDW(LOINC) RDW 13.1 11.5-15.0 % LAB PLTC(LOINC) PLATELET COUNT 199 150-450 X10E9 /L LAB MPV(LOINC) MPV 10.0 7-12 fL LAB NEUT(LOINC) % NEUTROPHILS 70.4 % LAB LYMP(LOINC) % LYMPHOCYTES 20.4 % LAB MONO(LOINC) % MONOCYTES 7.4 % LAB EOS(LOINC) % EOSINOPHILS 1.2 % LAB BASO(LOINC) % BASOPHILS 0.6 % LAB ANEUT(LOINC) ABSOLUTE NEUTROPHIL 10.3 High 1.5-6.6 X10E9/L LAB ALYMP(LOINC) ABSOLUTE LYMPHOCYTE 3.0 1.0-3.5 X10E9/L LAB AMONO(LOINC) ABSOLUTE MONOCYTE 1.1 High 0-0.9 X10E9/L LAB AEOS(LOINC) ABSOLUTE EOSINOPHIL 0.2 0.0-0.4 X10E9/L LAB ABASO(LOINC) ABSOLUTE BASOPHIL 0.1 0.0-0.2 X10E9/L Performed By: #### BMP, CBCA #### [facility] ([id number]) [address] [place] [place] [address] URINE NURSING Collected: 03/14 12:24 PM Status: COMPLETED Source: [facility] REPOSITORY TYPE CODE TESTS RESULT OUT OF RANGE REFERENCE UNITS LAB NUCG(LOINC) URINE NURSING Negative (qualifier value) NEG Performed By: #### 2106-3 ## ## [facility] ([id number]) [address] [place] [place] [address] URN MACROSCOPIC DEVORA Collected: 04/06/19 12:22 PM Status: COMPLETED Source: [facility] REPOSITORY TYPE CODE TESTS RESULT OUT OF RANGE REFERENCE UNITS LAB SPGRN(LOINC) SPECIFIC GRAVITY DEVORA 1.020 1.003-1.035 LAB LESTN(LOINC) LEUKOCYTE ESTERASE DEVORA Trace Abnormal NEG LAB NITN(LOINC) NITRITE DEVORA Negative (qualifier value) NEG LAB PHURN(LOINC) PH DEVORA 8.5 5.0-8.5 LAB PRURN(LOINC) PROTEIN DEVORA 100 Abnormal NEG mg/dL LAB GLURN(LOINC) GLUCOSE DEVORA Negative (qualifier value) NEG mg/dL LAB KETN(LOINC) KETONES DEVORA >=160 Abnormal NEG mg/dL LAB UROBN(LOINC) UROBILINOGEN DEVORA 0.2 <1.1 eu/dL LAB BILEN(LOINC) BILIRUBIN DEVORA Small Abnormal NEG LAB BLURN([facility]) BLOOD/HGB DEVORA Large Abnormal NEG Performed By: #### NUM #### [facility] ([id number]) [address] [place] [address], [place] [address] URINE CULTURE Observed: 04/06/2023 12:16 PM Status: COMPLETED [facility] C[facility] RESULTS NO GROWTH AT <1000 CFU/mL Performed By: #### 630-4 ### # [facility] ([id number]) [address] [place] [address], [address] [place] [address] ALLERGIES DATE TYPE / CODE NAME / CODE REACTION SEVERITY SOURCE Drug Class/[id number](SNO MED CT) NO KNOWN ALLERGIES [facility] ENCOUNTERS ADMIT/DISCHARGE ACCOUNT NUMBER ADMITTING ENCOUNTER CLASS LOCATION SOURCE 11/06/2023/11/06/19 24 [id number] [facility] EPIC 10/19/2023/10/19/19 24 [id number] Amb[facility] EPIC 10/03/2023/10/03/19 24 [id number] Ambulatory Building:[facility] 08/21/2023/08/21/19 24 [id number] Ambulatory Building:[facility] 04/17/2023/04/17/19 24 [id number] Ambulatory Buildin 18 [facility] 04/11/2023/04/11/19 24 [id number] Emergency Building:[facility] _EDRoom: 7Bed: 07 [facility] 04/11/2023/04/11/19 24 [id number] Ambulatory Building:[facility] 04/06/2023/04/06/19 24 [id number] Emergency Building:[facility] _EDRoom: 6Bed: 06 [facility] PAYERS ENCOUNTER GUARANTOR PAYER SUBSCRIBER SOURCE 11/06/2025 FRANCISCO MADRIDDOB: [place], [place] [address]Vde: (HP) Primary Insurance:CIGNAPolicy Number: [id number] Date:[id number] [address] [place] [phone]: ARIYAMiranda PITCHFORDDOB: [id number] [place] [address] [facility] EPIC 10/19/2023 ARIYAMiranda PITCHFORDDOB: [place], [place] [address]Yip: (HP) Primary Insurance:CIGNAPolicy Number: [id number] Date:0767-61-95LM [address] [place] [place] [id number]: ARIDEEDEE PITCHFORDDOB: [id number] [place] [address] [facility] EPIC 10/03/2023 ARIYAMiranda PITCHFORDDOB: [place], [place] [address]Ndx: (HP) Primary Insurance:CIGNAPolicy Number: [id number] Date:[id number] [address] [place] [place] [phone]: ARIYAMiranda PITCHFORDDOB: [id number] [place] [address] [facility] EPIC 08/21/2023 ARIYAMiranda PITCHFORDDOB: [place], [place] [address]Taf: (HP) Primary Insurance:CIGNAPolicy Number: [id number] Date:3054-76-38YL [address] [place] [phone]: ARIDEEDEE PITCHFORDDOB: [id number] [place] [address] [facility] EPIC 04/17/2023 FRANCISCO MADRIDDOB: [id number] [place] [address]Dbx: (HP) Primary Insurance:CIGNA-OPEN ACCESS PLUS (OAP,OA PLUS)Policy Number: [id number] Date:2019-11-[address]: [id number] [place] [address]Tct: (HP) [facility] 04/17/2023 [place] Insura nce:[place] MEDICAIDPolicy Number: [id number] Date:2023-03-13 FRANCISCO MADRIDDOB: [id number] [place] [address]Ndj: (HP) [facility] 04/11/2023 FRANCISCO MADRIDDOB: [id number] [place] [address]Iqa: (HP) Primary Insurance:CIGNA-OPEN ACCESS PLUS (OAP,OA PLUS)Policy Number: [id number] Date:2019-11-09 FRANCISCO MADRIDDOB: [id number] [place] [address]Gnt: (HP) [facility] 04/11/2023 Secondary Insura nce[place] MED[place]Policy Number: [id number] Date:2023-03-13 FRANCISCO MADRIDDOB: [id number] [place] [address]Inw: (HP) [facility] 04/11/2023 [facility] CENTERDEEDEE REDMANB: [id number] [place] [address]Tfl: (HP) Primary Insurance:CIGNAPolicy Number: [id number] Date:2188-37-18CJMIRANDA THAPA [address]XL: FRANCISCO STREETERFORDDOB: [id number] [place] [address] [facility] 04/11/2023 Secondary Insurance:[facility]ITAL[facility]Poly Number: [id number] Date:9953-82-44[address] [address]JT: [facility] CENTERDEANDREMIAMI CHILDREN'S HOSPITALDOB: [id number] [place] [address] [facility] 04/06/2023 [facility] CENTERDEANDRE Edwige FERDINANDPAWNEEDOB: [id number] [place], [place] [address]Xih: (HP) Primary Insurance:[facility]-OPEN ACCESS PLUS (OAP,OA PLUS)Policy Number: [id number] Date:2019-11-09 [facility] CENTERDEANDRE Edwige STREETERUNIVERSITY OF CONNECTICUT [facility]ALTH CENTER/JOHN DEMPSEY HOSPITALB: [id number] [place], [place] [address]Ccq: (HP) [facility] 04/06/2023 Secondary Insura nce:[place] MEDICAIDPolicy Number: [id number] Date:2023-03-13 [facility] CENTERDEEDEE Gibbons FEROZB: [id number] [place], [place] [address]Cey: (HP) [facility]
== END 2023-11-15 10:49 | disposition home or self-care (01) ==
PROVIDERS: PCP Nurse Practitioner Family; Visit Provider Obstetrics & Gynecology
DX: Z01.810 Encounter for preprocedural cardiovascular examination (principal); N84.0 Polyp of corpus uteri; R10.2 Pelvic and perineal pain
CPT/HCPCS: 71046

== ENCOUNTER 2023-11-24 08:19 | Day surgery (SDC) | payer OTHER, SELFPAY ==
[2023-11-15 11:40] VITALS: BP 111/75; PULSE 62; TEMP 36.3; O2SAT 100; BMI 21.0
--- OUTSIDE RECORDS SUMMARY | 2023-11-24 08:32 | XMS_ITS | CCD ---
Author Organization [facility] Care Team Providers Care Marketing Intelligence Manager Name Role Phone MARKER, DR ALEGRIA Attending Unavailable MARKER, DR ALEGRIA Admitting Unavailable HO ALEXANDER Consulting Unavailable MISC, DR PRECIADO Primary Care Unavailable NO FAMILY, PHYSICIAN Primary Care Provider Unava JOHANNA Tejada Emergency Provider Fredy Cobian Attending Unavailable Fredy Cobian Admitting Unavailable NO FAMILY, PHYSICIAN Primary Care Unavailable No Pcp, No Pcp Primary Care Provider Unavailmiguel e NO PCP, NO PCP Primary Care Unavailable JOSSY ESTEVEZ Attending Unavailable NO PCP, NO PCP Primary Care Unavailable DACIA ROSE Attending Unavailable NO PCP, NO PCP Primary Care Unavailable LUCA ODOM Attending Unavailab LUCA Schrader Attending Unavailab JAY Armendariz Referring Unavailable CASH KELLY Attending Unavailable JAY ONEAL Referring Unavailable CASH KELLY Attending Unavailable Medications Current Medications Medication Drug Class(es) [...] hours Ondansetron Active 4 MG PO Q8H August 10, 2022 11:58am Problems Active Problems [...] Name Value Interpretation Reference Range Facil ity US PELVIS TRANSVAGINALon US PELVIS TRANSVAGINAL EXAM: Pelvic Ultrasound, Transvaginal. REASON FOR EXAM: Pelvic pain. COMPARISON: None [...] report is generated using voice recognition reporting (Echo ite). On occasion [employer] erroneously drops words from the report or replaces the spoken word with similar sounding words. Please call with any questions/concerns regarding this report.* Dictated and transcribed 10/03/23/dpd This report has been electronically signed and approved by the interpreting radiologist. Electronically Signed Matthew Arana M.D. 2023-10-03 17:04:30 Normal Not Available BASIC METABOLIC PANLon 04-11 Anion gap [Moles/Vol] 6 mmol/L Normal 5-15 [facility] Comment on above: Performed By: #### B ARMANDO ZEPEDAA #### [facility] ([id number]) [address] [place] [address] 21093 Calcium [Mass/Vol] 8.6 mg/dL Normal 8.5-10.5 [facility] Comment on above: Performed By: #### B KATELYN, CBCA #### [facility] ([id number]) [address] [place] [address] 96182 Chloride [Moles/Vol] 109 mmol/L Normal 98-109 [facility] Comment on above: Performed By: #### B KATELYN CBCA #### [facility] ([id number]) [address] [place] [address] 31514 CO2 [Moles/Vol] 24 mmol/L Normal 22-32 [facility] Comment on above: Performed By: #### B KATELYN CBCA #### [facility] ([id number]) [address] [place] [address] 21711 Creatinine [Mass/Vol] 0.72 mg/dL Normal 0.40-1.00 [facility] Comment on above: Result Comment: METH OD TRACEABLE TO IDMS STANDARD Performed By: #### B KATELYN CBCA #### [facility] ([id number]) [address] [place] [address] 29309 eGFR (CKD-EPI) NON-RACE DEPENDENT >90 Normal >59 [facility] Comment on above: Result Comment: Reported eGFR is based on the CKD-EPI 2020 equation that does not use a race coefficient. Performed By: #### B KATELYN, CBCA #### [facility] ([id number]) [address] [place] [address] 48218 Glucose [Mass/Vol] 97 mg/dL Normal 65-99 [facility] Comment on above: Performed By: #### B MP, CBCA #### [facility] ([id number]) [address] [place] [address] 56703 Potassium [Moles/Vol] 3.2 mmol/L Low 3.5-5.0 [facility] Comment on above: Performed By: #### B MP, CBCA #### [facility] ([id number]) [address] [place] [address] 07934 Sodium [Moles/Vol] 139 mmol/L Normal 134-146 [facility] Comment on above: Performed By: #### B MP, CBCA #### [facility] ([id number]) [address] [place] [address] 82653 Urea nitrogen [Mass/Vol] 6 mg/dL Normal 5-23 [facility] Comment on above: Performed By: #### B MP, CBCA #### [facility] ([id number]) [address] [place] [address] 20553 CBC AND AUTO DIFFon 04-11-19 24 ABSOLUTE BASOPHIL 0.1 X10E9/L Normal 0.0-0.2 [facility] Comment on above: Performed By: #### B MP, CBCA #### [facility] ([id number]) [address] [place] [address] 38153 ABSOLUTE NEUTROPHIL 10.3 X10E9/L High 1.5-6.6 [facility] Comment on above: Performed By: #### B MP, CBCA #### [facility] ([id number]) [address] [place] [address] 11607 Basophils/100 WBC (Bld) 0.6 % Normal [facility] Comment on above: Performed By: #### B MP, CBCA #### [facility] ([id number]) [address] [place] [address] 33200 Eosinophils (Bld) [#/Vol] 0.2 10*3/uL Normal 0.0-0.4 [facility] Comment on above: Performed By: #### B MP, CBCA #### [facility] ([id number]) [address] [place] [address] 98261 Eosinophils/100 WBC (Bld) 1.2 % Normal [facility] Comment on above: Performed By: #### B MP, CBCA #### [facility] ([id number]) [address] [place] [address] 98163 Erythrocyte distribution width (RBC) [Ratio] 13.1 % Normal 11.5-15.0 [facility] Comment on above: Performed By: #### B MP, CBCA #### [facility] ([id number]) [address] [place] [address] 62238 Hematocrit (Bld) [Volume fraction] 38.7 % Normal 35-47 [facility] Comment on above: Performed By: #### B MP, CBCA #### [facility] ([id number]) [address] [place] [address] 75074 Hemoglobin (Bld) [Mass/Vol] 12.7 g/dL Normal 11.7-15.5 [facility] Comment on above: Performed By: #### B MP, CBCA #### [facility] ([id number]) [address] [place] [address] 53205 Lymphocytes (Bld) [#/Vol] 3.0 10*3/uL Normal 1.0-3.5 [facility] Comment on above: Performed By: #### B MP, CBCA #### [facility] ([id number]) [address] [place] [address] 42423 Lymphocytes/100 WBC (Bld) 20.4 % Normal [facility] Comment on above: Performed By: #### B MP, CBCA #### [facility] ([id number]) [address] [place] [address] 00444 MCH (RBC) [Entitic mass] 26.1 pg Low 27-34 [facility] Comment on above: Performed By: #### B MP, CBCA #### [facility] ([id number]) [address] [place] [address] 23769 MCHC (RBC) [Mass/Vol] 32.9 g/dL Normal 32-36 [facility] Comment on above: Performed By: #### B MP, CBCA #### [facility] ([id number]) [address] [place] [address] 71599 MCV (RBC) [Entitic vol] 79 fL Low 80-100 [facility] Comment on above: Performed By: #### B KATELYN, CBCA #### [facility] ([id number]) [address] [place] [address] 63260 Monocytes (Bld) [#/Vol] 1.1 10*3/uL High 0-0.9 [facility] Comment on above: Performed By: #### B KATELYN, CBCA #### [facility] ([id number]) [address] [place] [address] 91468 Monocytes/100 WBC (Bld) 7.4 % Normal [facility] Comment on above: Performed By: #### B KATELYN, CBCA #### [facility] ([id number]) [address] [place] [address] 06095 Neutrophils/100 WBC (Bld) 70.4 % Normal [facility] Comment on above: Performed By: #### B KATELYN, CBCA #### [facility] ([id number]) [address] [place] [address] 65397 Platelet mean volume (Bld) [Entitic vol] 10.0 fL Normal 7-12 [facility] Comment on above: Performed By: #### B MP, CBCA #### [facility] ([id number]) [address] [place] [address] 66832 Platelets (Bld) [#/Vol] 199 10*3/uL Normal 150-450 [facility] Comment on above: Performed By: #### B MP, CBCA #### [facility] ([id number]) [address] [place] [address] 92264 RBC COUNT 4.88 X10E12/L Normal 3.80-5.20 [facility] Comment on above: Performed By: #### B KATELYN, CBCA #### [facility] ([id number]) [address] [place] [address] 55315 WBC (Bld) [#/Vol] 14.6 10*3/uL High 4.0-11.0 [facility] Comment on above: Performed By: #### B KATELYN, CBCA #### [facility] ([id number]) [address] [place] [address] 99165 HCG ( test) Ql (U)o n 04-11-2023 Beta HCG ( test) Ql (U) Negative Normal NEG [facility] Comment on above: Performed By: #### 2 106-3 #### [facility] ([id number]) [address] [place] [address] 15177 SUPERFICIAL WOUND CULTUREon 04-11-2023 Bacteria identified Aer cx Nom (Wound) GRAM STAIN >25 WHITE BLOOD CELLS/LPF 1 to 9 SQUAMOUS EPITHELIAL CELLS/LPF MANY GRAM POSITIVE COCCI IN CLUSTERS MANY GRAM POSITIVE COCCI IN PAIRS MANY GRAM NEGATIVE COCCOBACILLI SMEAR REVIEWED REPORT UPDATED REVIEWED BY TECH III CULTURE RESULTS RARE NORMAL URO GENITAL KARLA Normal [facility] Comment on above: Performed By: #### 6 32-0 #### [facility] ([id number]) [address] [place] [address], [address] [place] [address] URN MACROSCOPIC NURon 2023 BILIRUBIN DEVORA Negative Normal NEG [facility] Comment on above: Performed By: #### N UM #### [facility] ([id number]) [address] [place] [address] [place] [address] BLOOD/HGB DEVORA Large Abnormal NEG [facility] Comment on above: Performed By: #### N UM #### [facility] ([id number]) [address] [place] [address] [place] [address] GLUCOSE DEVORA Negative Normal NEG [facility] Comment on above: Performed By: #### N UM #### [facility] ([id number]) [address] [place] [address] [place] [address] KETONES DEVORA Negative Normal NEG [facility] Comment on above: Performed By: #### N UM #### [facility] ([id number]) [address] [place] [address] [place] [address] LEUKOCYTE ESTERASE DEVORA Small Abnormal NEG [facility] Comment on above: Performed By: #### N UM #### [facility] ([id number]) [address] [place] [address] [place] [address] NITRITE DEVORA Negative Normal NEG [facility] Comment on above: Performed By: #### N UM #### [facility] ([id number]) [address] [place] [address] [place] [address] PH DEVORA 6.0 Normal 5.0-8.5 [facility] Comment on above: Performed By: #### N UM #### [facility] ([id number]) [address] [place] [address] 51347 PROTEIN DEVORA 30 mg/dL Abnormal NEG [facility] Comment on above: Performed By: #### N UM #### [facility] ([id number]) [address] [place] [address] [place] [address] SPECIFIC GRAVITY DEVORA >=1.030 Normal 1.003-1.035 [facility] Comment on above: Performed By: #### N UM #### [facility] ([id number]) [address] [place] [address] 05323 UROBILINOGEN DEVORA 0.2 eu/dL Normal <1.1 [facility] Comment on above: Performed By: #### N UM #### [facility] ([id number]) [address] [place] [address] 36136 HCG ( test) Ql (U)o n 04-06-2023 Beta HCG ( test) Ql (U) Negative Normal NEG [facility] Comment on above: Performed By: #### 2 106-3 #### [facility] ([id number]) [address] [place] [address] 81650 URINE CULTUREon 04-06-2023 Bacteria identified Cx Nom (U) CULTURE RESULTS NO GROWTH AT <1000 CFU/mL Normal [facility] Comment on above: Performed By: #### 6 30-4 #### [facility] ([id number]) [address] [place] [address], [address] [place] [address] URN MACROSCOPIC NURon 2023 BILIRUBIN DEVORA Small Abnormal NEG [facility] Comment on above: Performed By: #### N UM #### [facility] ([id number]) [address] [place] [address] 91192 BLOOD/HGB DEVORA Large Abnormal NEG [facility] Comment on above: Performed By: #### N UM #### [facility] ([id number]) [address] [place] [address] 58775 GLUCOSE DEVORA Negative Normal NEG [facility] Comment on above: Performed By: #### N UM #### [facility] ([id number]) [address] [place] [address] 52197 KETONES DEVORA >=160 Abnormal NEG [facility] Comment on above: Performed By: #### N UM #### [facility] ([id number]) [address] [place] [address] 52602 LEUKOCYTE ESTERASE DEVORA Trace Abnormal NEG [facility] Comment on above: Performed By: #### N UM #### [facility] ([id number]) [address] [place] [address] 23165 NITRITE DEVORA Negative Normal NEG [facility] Comment on above: Performed By: #### N UM #### [facility] ([id number]) [address] [place] [address] 31974 PH DEVORA 8.5 Normal 5.0-8.5 [facility] Comment on above: Performed By: #### N UM #### [facility] ([id number]) [address] [place] [address] 84086 PROTEIN DEVORA 100 mg/dL Abnormal NEG [facility] Comment on above: Performed By: #### N UM #### [facility] ([id number]) [address] [place] [address] 81685 SPECIFIC GRAVITY DEVORA 1.020 Normal 1.003-1.035 [facility] Comment on above: Performed By: #### N UM #### [facility] ([id number]) [address] [place] [address] 02512 UROBILINOGEN DEVORA 0.2 eu/dL Normal <1.1 [facility] Comment on above: Performed By: #### N UM #### [facility] ([id number]) [address] [place] [address] 86933 COVID-19 Antigenon 3 COVID-19 Antigen Healthcare Worker?: [...] developed and its performance characteristic determined by [employer] and validated at [facility]. This test has not been FDA cleared [...] for SARS Antigen by RODERICK PERFORMED BY: [place] [address] PATHOLOGIST TREE TOPPER SHAYLA LEAVITT M.D. [facility] Comment on above: Performed By: #### C OVID-19 BILLY, SOFIANEG #### [address] Billy Ag Negativeon 08-11-19 23 Billy Ag Negative Negative Normal Negative [facility] Comment on above: Result Comment: This is a duplicate Billy SARS Antigen (RODERICK) result to be used for statistical tracking purpose only. PERFORMED BY: [place] [address] PATHOLOGIST TREE TOPPER SHAYLA LEAVITT M.D. Performed By: #### C OVID-19 BILLY, SOFIANEG #### [place] [id number] [facility] Vital Signs Date Time Vital Sign Value Performing Clinician Elis gurrola 04-17-2023 15:57-0500 Body mass index (BMI) [Ratio] 23.69 kg/m2 Dacia Rose MD Work Phone: [facility] 04-17-2023 15:57-0500 Body weight 56.88 kg Dacia Rose MD Work Phone: [facility] 04-17-2023 15:57-0500 Diastolic blood pressure 66 mm[Hg] Dacia Rose MD Work Phone: [facility] 04-17-2023 15:57-0500 Systolic blood pressure 104 mm[Hg] Dacia Rose MD Work Phone: [facility] 08-10-2022 11:26-0400 Body height 154.94 cm PHYSICIAN NO [facility] 08-10-2022 11:26-0400 Body temperature 98.6 [degF] PHYSICIAN NO [facility] 08-10-2022 11:26-0400 Body weight 53.35 kg PHYSICIAN NO [facility] 08-10-2022 11:26-0400 Diastolic blood pressure 79 mm[Hg] PHYSICIAN NO [facility] 08-10-2022 11:26-0400 Heart rate 85 /min PHYSICIAN NO [facility] 08-10-2022 11:26-0400 Respiratory rate 16 /min PHYSICIAN NO [facility] 08-10-2022 11:26-0400 SaO2% (BldA) [Mass fraction] 100 % PHYSICIAN NO [facility] 08-10-2022 11:26-0400 Systolic blood pressure 122 mm[Hg] PHYSICIAN NO [facility] Encounters Encounter Date Encounter Type Care Provider Facility Start: 11-06-2023 End: 11-06-2023 ambulatory CASH LETICIA Not Available Start: 10-19-2023 End: 10-19-2023 ambulatory CASH LETICIA Not Available Start: 10-03-2023 End: 10-03-2023 ambulatory JAY ONEAL Not Available Start: 08-21-2023 End: 08-21-2023 ambulatory LUCA ODOM Not Available Start: 04-17-2023 End: 04-17-2023 ambulatory DACIA ROSE [facility] Start: 04-17-2023 End: 04-17-2023 Office outpatient visit 15 minutes Dacia Rose MD Work Phone: [facility] Comment on above: Labial abscess (Prim malu Dx) Start: 04-14-2023 Telephone encounter Mignon Mar RN [facility] Start: 04-12-2023 Telephone encounter Amy fitzpatrick DO Work Phone: [facility] [place] Start: 04-11-2023 End: 04-11-2023 Emergency department patient visit NO PCP NO PCP [facility] Start: 04-11-2023 End: 04-11-2023 ambulatory LUCA A HAAVERY Not Available Start: 04-06-2023 End: 04-06-2023 Emergency department patient visit NO PCP NO PCP [facility] Start: 08-10-2022 End: 08-10-2022 Emergency department patient visit Fredy Cobian Facility:[facility] Start: 08-10-2022 End: 08-10-2022 Emergency department patient visit PHYSICIAN NO [facility] Work Phone: Start: 07-29-2020 End: 07-29-[address] RAJI MORENO Facility: Procedures Date Procedure Procedure Detail Performing Clinician Start: 04-17-2023 Follow-up visit Follow-up DACIA ROSE Plan of Treatment Date Care Activity Detail Author Start: 12-21-2025 DTaP,Tdap and Td Vaccines (6 - Td or Tdap) DTaP,Tdap and Td Vaccines (6 - Td or Tdap) [facility] Start: 04-17-2024 Adult BMI Screening Adult BMI Screen ing [facility] Start: 04-17-2024 Tobacco Screening Tobacco Screening [facility] Start: 04-11-2024 Tobacco Screening Tobacco Screening [facility] Start: 04-06-2024 Adult BMI Screening Adult BMI Screen ing [facility] Start: 04-18-2023 End: 04-18-2023 Patient encounter procedure 04/18/2023 2:15 PM EST Office Visit [facility] [place] [id number] Dacia Rose MD [address] [place] [address] [facility] Start: 04-17-2023 End: 04-17-2023 Patient encounter procedure 04/17/2023 3:45 PM EST Office Visit [facility] [place] [phone] Dacia Rose MD [address] [facility] [address] [place], [place] [id number] [facility] Start: 11-11-2022 Influenza vaccination Influenza Vacc ine [facility] Start: 08-10-2022 SARS Antigen (LFIA) SARS Antigen (LF IA) [facility] Start: 08-10-2022 [facility] Start: 2015 Depression Screening Depression Scre ening [facility] Start: 2003 Screening for Chlamy chelsie trachomatis Chlamydia Screening [facility] Start: 2003 Tobacco Counseling Tobacco Counselin g [facility] Patient Education Viral Syndrome (DC) [facility] Work Phone: Patient referral [facility] Work Phone: Immunizations Immunization Date Immunization Notes Care Provider Lexi ruiz 07-05-2005 influenza virus vaccine, unspecified formulation Amy Govea DO Work Phone: [facility] Payers Date Payer Category Payer Private Health Insurance [id number] 2023 Medicaid MEDICAID [facility] M EDICAID [id number] 2023-Present [phone] [address] [place] [address] [id number] 2023 Medicaid [id number] 2022 Self-pay 2019 Private Health Insurance STEFFANY [place]OMEO-OPEN ACCESS PLUS (OAP,OA PLUS) [id number] 2019-Present [phone] [address] [place] [address] [id number] 2003 Unknown [id number] 286 2003 Unknown [id number] 286 2003 Unknown [id number] 286 2003 Unknown [id number] 259 2003 Unknown [id number] 259 2003 Unknown [id number] 259 2003 Unknown [id number] 259 2003 Unknown [id number] 259 1982 Unknown [id number] 93 1959 Private Health Insurance [id number] Unknown [id number] 31 Social History Date Type Detail Facility Start: 08-10-2022 Tobacco smoking stat us NHIS Smoker (finding) [facility] Start: 2003 Sex Assigned At Female [facility] Start: 01-01-2023 Tobacco smoking stat [facility] Smokes tobacco daily [facility] History of tobacco use Cigarette Smoker P [facility] History of tobacco use Cigar Smoker [facility] Start: 01-01-2023 Tobacco use and exposure Smokeless tobacco non-user [facility] Start: 04-11-2023 End: 04-17-2023 Alcohol intake Ex-drinker (finding) [facility] Start: 04-23-2020 End: 04-11-2023 History of Social function [facility] Start: 04-23-2020 End: 04-11-2023 Tobacco use panel [facility] Childcare Unknown [facility] Start: 2003 Sex Assigned At Not on file P [facility] History of Present illness Narrative 04-17-2023 Dacia Rose MD - 04/17/2023 3:45 PM EST Note Date & Type Note Facility 04-17-2023 History of Presen t illness Narrative Roger Madrid is a 18 y.o.female. Patient's last menstrual period was 04/05/2023 (exact date).. She presents today for follow up from I&D of L labial abscess in ED on 04/11/23 HEALING WELL NO FCNVDC WORD CATH FELL OUT ON MONDAY STILL [...] Danya LOREDO RN documented in this encounter [facility] Note 04-14-2023 Telephone Encounter - Mignon Mar [...] call the office and speak to the button attaching machine operator provider. She verbalized she understood. PETRE Azul documented in this encounter [employer] Telephone encounter Note 04-14-2023 Telephone Encounter - [...] call the office and speak to the button attaching machine operator provider. She verbalized she understood. [facility]ER [facility]ul [facility]-12-2023 Telephone Encounter - Annmarie Tom [...] do so now. documented in this encounter [facility] Telephone encounter Note 04-12-2023 [...] Note Facility Evaluation note [facility] Work Phone: Evaluation note Note Date & [...] and content) DATE CREATED AUTHOR 08/06/2020 [facility] DATE CREATED AUTHOR AUTHOR'S ORGANIZ ATION 12/13/2022 [facility] DATE CREATED AUTHOR AUTHOR'S ORGANIZ ATION 04/16/2023 [facility] DATE CREATED AUTHOR AUTHOR'S ORGANIZ ATION 04/22/2023 [facility] DATE CREATED AUTHOR AUTHOR'S ORGANIZ ATION 11/08/2023 [facility] Care Teams (unrecognized sec tion and content) Team Status: Active Member Role Status Dates PHYSICIAN NO FAMILY Primary Care Provider Active Team Status: Inactive Member Role Status Dates PHYSICIAN NO FAMILY Primary Care Provider Active Fredy Cobian APRN Emergency Provider Active Marketing Intelligence Manager Relationship Specialty Start Date End Date No Pcp, [place] [address] PCP - General Family Medicine 04/06/23 Marketing Intelligence Manager Relationship Specialty Start Date End Date No Pcp, [place] [address] PCP - General Family Medicine 04/06/23 Marketing Intelligence Manager Relationship Specialty Start Date End Date No Pcp, [place] [address] PCP - General Family Medicine 04/06/23 Goals [...] BE BASED ON THE PRIMARY CLINICAL RECORDS. [employer] provides no warranty or guarantee of the accuracy or completeness of information in this document.
[2023-11-24 08:38] LABS: Basophils Absolute Auto 0.1 10^3/uL (0.0-0.1); Basophils Percent Auto 0.7 % (0.2-2.0); Eosinophils Absolute Auto 0.2 10^3/uL (0.0-0.7); Eosinophils Percent Auto 2.2 % (0.9-7.0); Hematocrit 42.6 % (36.0-48.0); Hemoglobin 13.7 g/dL (12.0-16.0); Immature Granulocytes Abs Auto 0.02 10^3/uL (0.00-0.03); Immature Granulocytes Pct Auto 0.2 % (0.0-0.5); Lymphocytes Absolute Auto 2.6 10^3/uL (1.2-3.8); Lymphocytes Percent Auto 23.9 % (20.5-60.0); Mean Corpuscular HGB Conc 32.2 g/dL (29.9-35.2); Mean Corpuscular Hemoglobin 26.1 pg (26.7-34.0); Mean Corpuscular Volume 81.3 fL (81.0-99.0); Mean Platelet Volume 11.5 fL (9.5-13.5); Monocytes Absolute Auto 0.9 10^3/uL (0.3-0.8); Monocytes Percent Auto 8.5 % (1.7-12.0); Neutrophils Absolute Auto 6.9 10^3/uL (1.4-6.5); Neutrophils Percent Auto 64.5 % (43.0-75.0); Platelet Count 225 10^3/uL (150-450); Red Blood Count 5.24 10^6/uL (4.20-5.40); Red Cell Distribution Width 13.2 % (11.0-15.0); White Blood Count 10.7 10^3/uL (4.0-11.0)
[2023-11-24 08:41] VITALS: BP 108/73; PULSE 79; TEMP 36.3; O2SAT 99; BMI 20.8
[2023-11-24] MEDS: LACTATED RINGER'S SOLUTION 1,000 ML 50 ML IV (08:41)
[2023-11-24 09:08] LABS: HCG Quantitative <1 mIU/mL
--- NOTE | 2023-11-24 10:13 | P.ON_ITS ---
Brief Operative Note Date of procedure: 11/24/23 Pre-op diagnosis general: pelvic pain, suspected endometrial polyp Post-op diagnosis: same as pre-op Procedure: NAME OF PROCEDURE: [d&c hysteroscopy was aborted, diagnostic laparoscopy] PROCEDURE: The patient was taken back to the Operating Room where she was prepped and draped in normal sterile fashion after being placed under general anesthesia without difficulty. She was also placed in the dorsal lithotomy position. d&c portion of procedure was aborted dt narrow vaginal introitus The patient was taken back to the Operating Room where she was placed in dorsal lithotomy position after given general anesthesia. The patient was prepped and draped in normal sterile fashion. A sponge stick was placed into the patient's vagina. Attention was turned to the patient's abdomen, where a small umbilical incision was made. The fascia was tented using Ginna clamps and the fascia was entered sharply. Confirmation of intraabdominal placement of the 10 mm port was confirmed under direct visualization using a laparoscope. The patient's abdomen was then insufflated using CO2 gas with approximately 4 liters. A second port was placed left laterally, this was done under direct visualization with a 5 mm port. Survey of the patient's abdomen demonstrated normal liver and gallbladder. Survey of the patient's pelvic anatomy demonstrated normal appearing rt and lt ovary and tubes as well as normal appearing uterus. No endometrial implants could be noted, no evidence of any pelvic disease was seen, normal appearing pelvic cavity. All instruments were removed from the patient's abdomen. The patient's abdomen was deinsufflated of CO2 gas. The patient tolerated the procedure well. Sponge stick was removed from the patient's vagina. The patient's infraumbilical fascia was closed using #0 Vicryl on a GI needle. The patient's skin was closed laterally and infraumbilically using 4-0 Vicryl. The patient tolerated the procedure well. Sponge, lap and needle counts were correct x 2. The patient was taken to Recovery Room in stable condition. please note significant pelvic fluid was seen and sent off for cytology Anesthesia: ALETHEA Surgeon: Gama Tracy Sales Utility Representative: Tammy Mccabe Estimated blood loss (mL): 5 Pathology: other (pelvic fluid) Condition: stable Disposition: PACU Urinary Catheter Management Urinary Catheter Management Urethral: Cath placed during this visit: no
[2023-11-24 10:30] VITALS: BP 114/65; PULSE 99; TEMP 36.2; O2SAT 99
[2023-11-24] MEDS: HYDROCODONE/ACET 5-325 MG TABLET 1 TAB PO (10:44)
[2023-11-24] MEDS: FLUCONAZOLE 150 MG TABLET PO (10:45)
[2023-11-24] MEDS: HYDROMORPHONE HCL 1 MG/ML CARTRIDGE IV (10:50)
[2023-11-24 11:20] VITALS: BP 90/60; PULSE 55; O2SAT 96
[2023-11-24 11:50] VITALS: BP 102/80; PULSE 65; O2SAT 100
[2023-11-24 12:20] VITALS: BP 106/64; PULSE 60; O2SAT 99
== END 2023-11-24 12:37 | disposition home or self-care (01) ==
PROVIDERS: PCP Nurse Practitioner Family; Visit Provider Obstetrics & Gynecology
PROC: (CPT 00840; principal; 2023-11-24 08:35)
DX: R10.2 Pelvic and perineal pain (principal); N89.5 Stricture and atresia of vagina; N84.0 Polyp of corpus uteri; K21.9 Gastro-esophageal reflux disease without esophagitis
CPT/HCPCS: 00840; 00952; 49320; 58558; 36415; 84702; 85025; 88112; 99999; J1100; J1170; J1885; J2250; J2405; J2704; J2710; J3010